=== PATIENT | female | born 1965 | race Caucasian/White ===

== ENCOUNTER 2019-05-05 03:49 | Emergency (ER) | payer OTHER, SELFPAY ==
--- NOTE | ~2019-05-05 | CT_ITS ---
EXAMINATION: CT lumbar spine wo con DATE: 05/05/2019 05:41 INDICATION: Low back pain. TECHNIQUE: Computed tomography (CT) of the lumbar spine was performed without intravenous contrast. A utomated exposure control and iterative reconstruction technique were employed. The dose-length produ ct was 1160.80 mGy-cm. COMPARISON: None FINDINGS: There is a 2 mm stone in right kidney. There is a 4.1 cm cyst in left kidney. There is a ga llstone in the gallbladder. There is 3 mm anterolisthesis of L3 on L4. Vertebral body heights are nor mal. There is mildly decreased disc height at L3-L4. The following disc levels are specifically discu ssed: L1-L2: The disc does not extend beyond the endplate margin. There is moderate bilateral facet joint o steoarthritis. There is no neural foraminal stenosis. There is no central canal stenosis. L2-L3: The disc does not extend beyond the endplate margin. There is moderate bilateral facet joint o steoarthritis. There is no neural foraminal stenosis. There is no central canal stenosis. L3-L4: The disc is bulging. There is severe bilateral facet joint osteoarthritis. There is mild bilat eral neural foraminal stenosis. There is mild central canal stenosis. L4-L5: The disc is bulging. There is mild right and moderate left facet joint osteoarthritis. There i s mild bilateral neural foraminal stenosis. There is mild central canal stenosis. L5-S1: The disc does not extend beyond the endplate margin. There is moderate right and severe left f acet joint osteoarthritis. There is no neural foraminal stenosis. There is no central canal stenosis. IMPRESSION: 1. Mild lumbar spondylosis. Reviewed, dictated and finalized at location A. ER APPRAISER IMPRESSION: 1. Mild lumbar spondylosis.
[2019-05-05 03:44] VITALS: BP 187/105; PULSE 86; RESP 20; TEMP 36.7; O2SAT 100
--- NOTE | 2019-05-05 04:02 | ED.BACK ---
HPI - Back Pain/Injury General Chief Complaint: Back Pain/Injury Stated Complaint: BACK PAIN Source: RN notes reviewed History of Present Illness HPI Narrative: Patient presents emergency department from home via EMS for back pain. Patient states that today he was working outside in the garden and went to stand up and had sudden onset of back pain and lower bilateral back. She denies any direct trauma or injury. States since that time the patient's pain is progressively gotten worse she notes spasm in the lower back. Patient states she has a history of injuring her back usually in the spring of every year. Patient denies any fevers or chills abdominal pain numbness or tingling in the extremities bowel or bladder incontinence or any other symptoms. States she tried taking Tylenol at home with no relief Related Data Allergies Allergy/AdvReac Type Severity Reaction Status Date / Time No Known Allergies Allergy Verified 05/05/19 03:50 Review of Systems Review of Systems: Narrative: Gen.: Denies fevers or chills ENT: Denies congestion Respiratory: Denies shortness of breath or cough CV: Denies chest pain or palpitations GI: Denies abdominal pain nausea, emesis or diarrhea denies pain with urination or bladder incontinence Musculoskeletal: See HPI Neuro: Denies numbness, tingling, weakness or focal weakness Skin: Denies rash Except as documented, all other systems reviewed and negative [facility] Past Medical History Medical History (Updated 05/05/19 @ 06:05 by Nadeem Harry DO) Hypertension Family History Family History (Updated 05/03/16 @ 09:58 by DOCTOR UNKNOWN) Mother Patient's mother is Sibling Patient's brother is Patient's sister is in good health Patient's brother is in good health Social History Social History Smoking status: Never smoker Alcohol intake: current Exam Narrative: Exam Narrative: APPEARANCE: No acute distress, nontoxic, resting in bed Eyes: EOMI HEENT: Normocephalic, atraumatic, CV: Regular rate and rhythm without murmur RESPIRATORY: No respiratory distress. Clear to auscultation bilaterally. Abdomen: Soft and nontender, no rebound or guarding MUSCULOSKELETAl: Moves all extremities, no clubbing cyanosis or edema Back: No midline lumbar tenderness to palpation or step-off, tender to palpation over bilateral paravertebral muscles L3-5 , pain increased with forward flexion NEURO: Awake and alert. Following commands, speech normal, no focal deficits, muscle strength 5 out of 5 bilateral lower extremities, bilateral patellar reflex 2+ SKIN:: Warm, dry. Normal Color no rash or lesions Course Course Emergency Course: Patient noted initial minimal pain with Valium and Toradol. Morphine given and patient notes improvement with morphine Discussed with patient results of workup and diagnosis. Discussed need for follow-up with primary care, proper use of medication, and reasons to return to the emergency department. Patient understands and agrees to current treatment plan Vital Signs Vital signs: Vital Signs Temperature 98.0 F 05/05/19 03:44 Pulse Rate 86 05/05/19 03:44 Respiratory Rate 20 05/05/19 03:44 Blood Pressure 187/105 H 05/05/19 03:44 Pulse Oximetry 100 05/05/19 03:44 Temperature 98.0 F 05/05/19 03:44 Pulse Rate 73 05/05/19 05:48 Respiratory Rate 20 05/05/19 05:48 Blood Pressure 158/98 H 05/05/19 05:48 Pulse Oximetry 100 05/05/19 05:48 MDM - Back Pain/Injury MDM Narrative Medical decision making narrative: Patient?s pain is positional and localized to back without signs of cord compression or cauda equina. Normal nuerologic exams. No fever noted and no significant risk factors for osteomyelitis or spinal epidural abscess. No symptoms or signs to suggest pain is referred from abdominal or source. There are no pulsatile masses to exam. Patient ambulates
[2019-05-05] MEDS: KETOROLAC 30 MG/ML VIAL (*BKC) IV PUSH (04:07)
--- NOTE | 2019-05-05 04:08 | PC.NURSE ---
INFORMED PT NEED FOR UA. STATES UNABLE TO URINATE AT THIS TIME. WILL CONTINUE TO MONITOR
[2019-05-05] MEDS: MORPHINE SULFATE 4 MG/ML INJ IV PUSH (05:47)
[2019-05-05 05:48] VITALS: BP 158/98; PULSE 73; RESP 20; O2SAT 100
--- NOTE | 2019-05-05 05:52 | PC.NURSE ---
Called lab to add on Lipid Panel
[2019-05-05 06:37] VITALS: BP 148/89; PULSE 89; RESP 20; O2SAT 97
== END 2019-05-05 06:39 | disposition home or self-care (01) ==
PROVIDERS: Emergency Provider Emergency Medicine; PCP Internal Medicine
DX: M54.5 Low back pain (principal); I10 Essential (primary) hypertension
CPT/HCPCS: 72131; 96374; 96375; 99284; J1885; J2270; J3360

== ENCOUNTER 2019-09-01 12:40 | Outpatient (CLI) | payer OTHER, SELFPAY | END 2019-09-01 12:41 | disposition home or self-care (01) | LOC: ANHAUDIO 12:42 | PROVIDERS: PCP Internal Medicine; Visit Provider Internal Medicine | DX: H90.3 Sensorineural hearing loss, bilateral (principal) | CPT/HCPCS: 92557; 92567 ==

== ENCOUNTER 2020-03-08 09:20 | Outpatient (NON) | payer BC, SELFPAY ==
[2020-03-08 18:50] LABS: SARS-CoV-2 RNA PCR Positive
== END 2020-03-08 09:21 ==
PROVIDERS: PCP Internal Medicine; Visit Provider Internal Medicine
DX: Z20.822 Contact with and (suspected) exposure to COVID-19 (principal)
CPT/HCPCS: C9803; U0003

== ENCOUNTER 2020-03-15 11:10 | Inpatient (IN) | payer BC, SELFPAY ==
[2020-03-15] VITALS (10 sets, daily range): BP systolic 122–148; BP diastolic 77–89; PULSE 83–101; RESP 16–22; TEMP 36.1–36.6; O2SAT 90–96; BMI 35.6
--- NOTE | ~2020-03-15 | XR_ITS ---
EXAMINATION: XR chest 1V portable INDICATION: COVID pneumonia TECHNIQUE: Portable AP chest at 0605 hours COMPARISON: 03/15/2020 FINDINGS: There is mild elevation of the right hemidiaphragm. Patchy bilateral airspace opacities are present throughout all lung zones. The cardiomediastinal silhouette is normal. There is no pleural e ffusion or pneumothorax. IMPRESSION: 1. Patchy bilateral airspace opacities, consistent with pneumonia. Reviewed, dictated and finalized at location A. ER SUPERVISOR
--- NOTE | ~2020-03-15 | XR_ITS ---
EXAMINATION: XR chest 2V DATE: 03/15/2020 13:17 INDICATION: Shortness of breath and cough. COVID-19 positive. TECHNIQUE: Frontal and lateral views of the chest were obtained. COMPARISON: Chest 2 views 01/30/2012 FINDINGS: There are mild airspace opacities in the mid and lower lung zones. No pleural effusion or p neumothorax. The heart size is normal. IMPRESSION: 1. Mild airspace opacities in the mid and lower lung zones, consistent with pneumonia. Reviewed, dictated and finalized at location A. [employer] SOL[employer] ARCHITECT IMPRESSION: 1. Mild airspace opacities in the mid and lower lung zones, consistent with pne umonia.
--- NOTE | ~2020-03-15 | CT_ITS ---
EXAMINATION: CTA chest PE protocol DATE: 03/15/2020 16:04 INDICATION: Chest pain. COVID-19 positive on 03/08/20. TECHNIQUE: Computed tomography angiography (CTA) of the chest was performed with 100 mL Omnipaque-350 intravenous contrast timed to evaluate the pulmonary arteries. Coronal maximum intensity projection 3D-reconstructions were created by the technologist. Automated exposure control and iterative reconst ruction technique were employed. The dose-length product was 629.88 mGy-cm. COMPARISON: None. FINDINGS: There are patchy groundglass and airspace opacities involving all lobes. A calcified right lung nodule and calcified right hilar lymph nodes are consistent with old granulomatous disease. No p leural effusion. The heart size is normal. No pericardial effusion. There is a small sliding hiatal h ernia. There is mild mediastinal and right supraclavicular lymphadenopathy, likely reactive. There is no pulmonary embolus. There are gallstones in the gallbladder, which is normal in size. Partially vi sualized is a 4.6 cm cyst in left kidney. There is mild thoracic spondylosis. IMPRESSION: 1. No pulmonary embolus. 2. Diffuse lung disease, consistent with COVID-19 pneumonia. 3. Mild mediastinal and right supraclavicular lymphadenopathy, likely reactive. Reviewed, dictated and finalized at location A. ESTATE ATTORNEY
--- NOTE | 2020-03-15 11:11 | ECG_ITS ---
Measurements Intervals Bly Rate: 97 P: 53 RI: 160 QRS: -32 QRSD: 75 T: 25 QT: 328 QTc: 417 Interpretive Statements SINUS RHYTHM LEFT AXIS DEVIATION BORDERLINE R WAVE PROGRESSION, ANTERIOR LEADS BASELINE ARTIFACT- I, II, III, AVR, AVL, V1-V2, V6 BORDERLINE ECG Electronically Signed On 03-15-2020 11:24:14 FRONT END MECHANIC by Gavin Camacho D.O.
[2020-03-15 11:33] LABS: Basophils Percent Auto 0.2 % (0.2-1.2); Hemoglobin 14.1 g/dL (12.0-15.0); Immature Granulocyte Absolute 0.03 K/mm3 (0.00-0.031); Immature Granulocyte Percent A 0.5 % (0-0.5); Lymphocytes Absolute Auto 1.47 K/mm3 (0.9-3.2); Lymphocytes Percent Auto 26.7 % (18.3-44.2); Mean Corpuscular HGB Conc 32.8 g/dl (32-36); Mean Corpuscular Hemoglobin 30.5 pg (26-34); Mean Corpuscular Volume 93.1 fl (80-100); Mean Platelet Volume 9.4 fl (7.4-10.4); Monocytes Absolute Auto 0.3 K/mm3 (0.1-0.6); Monocytes Percent Auto 5.3 % (2.6-8.5); Neutrophils Absolute Auto 3.7 K/mm3 (1.3-6.7); Neutrophils Percent Auto 67.3 % (45.5-73.1); Platelet Count Result 229 k/mm3 (150-375); Red Blood Count 4.62 M/mm3 (4.2-5.4); Red Cell Distribution Width 12.5 % (11.5-14.5); White Blood Count 5.5 K/mm3 (4.5-10.0)
[2020-03-15 11:53] LABS: Anion Gap 6 mmol/L (8-16); Blood Urea Nitrogen 16 mg/dL (7-17); Calcium 8.7 mg/dL (8.4-10.2); Carbon Dioxide 28 mmol/L (22-30); Chloride 102 mmol/L (98-107); Estimated CRCL calculation 105 ml/min; Estimated Glomerular Filt Rate > 60; Glucose 105 mg/dL (65-105); Potassium 4.2 mmol/L (3.4-5.0); Sodium 136 mmol/L (137-145)
[2020-03-15 14:15] LABS: Alveolar/Arterial O2 Gradient 50.7 mmHg; Base Excess ABG -2.4 mEq/l (+/-2.0); Carboxyhemoglobin 0.5 % THb (0-2.0); Device ROOM AIR; Fractional Inspired Oxygen 21 %; HCO3 ABG 21.5 mEq/l (22.0-26.0); Methemoglobin ABG 0.1 %THb (0-1.5); Modified Allen's Test Pass; Oxygen Saturation ABG 90.5 % (95.0-100.0); Oxyhemoglobin 90.7 % THb (90.0-100.0); PCO2 ABG 34.6 mmHg (35.0-45.0); PO2 ABG 57.6 mmHg (80.0-100.0); PO2 FiO2 Ratio Arterial Blood 2.74 %; Reduced Hemoglobin 8.7 %THb (0-5.0); Site Drawn RIGHT RADIAL; Total Hemoglobin 14.1 g/dL (12.0-18.0); pH ABG 7.411 (7.350-7.450)
[2020-03-15 15:21] LABS: Lactic Acid Reflex 0.9 mmol/L (0.7-2.1)
[2020-03-15 15:24] LABS: D Dimer 1.05 ug/mL (<0.48)
[2020-03-15 15:34] LABS: Troponin I < 0.012 ng/mL (0.000-0.034)
[2020-03-15] MEDS: DEXAMETHASONE SOD PHOS INJ 4 MG/ML VIAL 6 MG IV PUSH (15:47)
--- NOTE | 2020-03-15 16:46 | ED.GENADULT ---
HPI - General Adult General Chief complaint: Shortness of Breath/Dyspnea <Delfino Romero PA-C - Last Filed: 03/15/20 16:52> Stated complaint: covid positive/sob <Delfino Romero PA-C - Last Filed: 03/15/20 16:52> Time Seen by Provider: 03/15/20 14:01 <Delfino Romero PA-C - Last Filed: 03/15/20 16:52> Source: patient <Delfino Romero PA-C - Last Filed: 03/15/20 16:52> Mode of arrival: ambulatory <QING Cox Last Filed: 03/15/20 16:52> Limitations: no limitations <QING Cox Last Filed: 03/15/20 16:52> History of Present Illness HPI narrative: Patient is a 54-year-old female who presents with dyspnea and hypoxemia with Covid positive and symptoms since Anna patient has been checking her oxygen at home was found to be low presents for evaluation of this patient denies chest pain does note fatigue and weakness patient denies any history of respiratory disease. Patient on arrival to emergency department is ill-appearing. Patient denying any pain has been taking [id number] medications with minimal improvement <Delfino Romero PA-C - Last Filed: 03/15/20 16:52> Related Data Home medications: Home Medications Medication Instructions Recorded Confirmed Eusebia's wort 300 mg tablet 300 mg PO TID 05/08/19 09/13/19 ascorbic acid (vitamin C) 250 mg 250 mg PO DAILY 05/08/19 02/12/20 tablet calcium carbonate 600 mg calcium 600 mg PO DAILY 05/08/19 02/12/20 (1,500 mg) tablet aspirin 81 mg tablet,delayed 81 mg PO DAILY 05/15/19 02/12/20 release cholecalciferol (vitamin D3) 125 5,000 unit PO DAILY 05/15/19 02/12/20 mcg (5,000 unit) capsule lactobacillus combination no.8 3 3,000 mmu cells PO DAILY 05/15/19 02/12/20 billion cell capsule <QING Cox Last Filed: 03/15/20 16:52> Allergies/adverse reactions: Allergies Allergy/AdvReac Type Severity Reaction Status Date / Time No Known Allergies Allergy Verified 02/11/20 13:30 <Delfino Romero PA-C - Last Filed: 03/15/20 16:52> Review of Systems Review of Systems: All systems reviewed & are unremarkable except as noted in HPI and below <Delfino Romero PA-C - Last Filed: 03/15/20 16:52> [facility] Past Medical History Medical History: Medical History (Updated 03/15/20 @ 16:52 by Delfino Romero PA-C) Hypertension <Delfino Romero PA-C - Last Filed: 03/15/20 16:52> Family History Family History: Family History Mother Patient's mother is Sibling Patient's brother is Patient's sister is in good health Patient's brother is in good health <Delfino Romero PA-C - Last Filed: 03/15/20 16:52> Social History Social History: Social History Smoking status: Never smoker Second hand tobacco smoke exposure: No Alcohol intake: current Substance use: never <Delfino Romero PA-C - Last Filed: 03/15/20 16:52> Exam Narrative: Exam Narrative: GENERAL: Ill appearing, obese, and in no acute distress. HEAD: Normocephalic, atraumatic. EYES: PERRLA and EOMI. ENT: Nares clear, no rhinorrhea or epistaxis. Mucous membranes moist. Oropharynx without tonsillar hypertrophy exudate or other lesions. CHEST: Diminished on auscultation. No respiratory distress. Crackles in the lung bases HEART: Regular rate and rhythm. No murmur heard. Normal peripheral pulses. EXTREMITIES: Normal range of motion. No edema. SKIN: Warm, dry, no rash. NEURO: No focal deficits. Alert and oriented x3. Cranial nerves II through XII grossly intact PSYCH: Normal mood and affect. <Delfino Romero PA-C - Last Filed: 03/15/20 16:52> Course Course Emergency Course: Patient found to have hypoxemia Covid pneumonia PE ruled out will be placed in hospital requiring oxygenation to the hospitalist kimberly
[2020-03-15] MEDS: FAMOTIDINE 20 MG/2 ML VIAL IV PUSH ×2 (16:47→23:41)
[2020-03-15] MEDS: SODIUM CHLORIDE 0.9% IV 1,000 ML 999 ML IV CONT (16:48)
--- NOTE | 2020-03-15 20:00 | PM.IMHP ---
H&P: HPI History of Present Illness Date/Time: 03/15/20 20:00 Chief Complaint: Shortness of breath. Narrative: This is a 54-year-old female with hypertension presented to the emergency department earlier today with complaints of shortness of breath. She began feeling poorly on New Year's Anna with dry cough, fever, headache, and generalized malaise. She tested positive for COVID on March 08, 2020 and assumes that she got it at work as several coworkers were positive as well. Her fever has improved although she continues to have a dry cough and more importantly she is developed feelings of shortness of breath over last 3 days. She has been monitoring her pulse ox at home and it was reportedly in the high 80s today on room air, prompting her visit today. She denies chest pain, pleuritic pain, palpitations, lower extremity edema, calf pain, and history of venous thromboembolism. Review of Systems Review of Systems: Narrative: Twelve systems were reviewed with pertinent positives and negatives as per HPI. Reports feeling warm at the time my evaluation but the room is quite hot. No anosmia or dysgeusia. She had some mild diarrhea when she 1st began to feel ill but that has improved. Appetite has been okay. No nausea or vomiting. Except as documented, all other systems were reviewed and are negative. [facility] Past Medical History Medical History (Updated 03/15/20 @ 21:16 by Mary Alice Roberts PA-C) Hypertension Pure hypercholesterolemia Surgical History Surgical History (Updated 03/15/20 @ 21:13 by Mary Alice Roberts PA-C) History of arthroscopic knee surgery History of arthroscopic surgery of elbow Bilateral. History of repair of left rotator cuff History of sinus surgery Family History Family History Mother Patient's mother is Sibling Patient's brother is Patient's sister is in good health Patient's brother is in good health Social History Social History (Updated 03/15/20 @ 21:13 by Mary Alice Roberts PA-C) Social History: The patient resides in [place]. She has 2 grown children. Lifelong nonsmoker. Occasional alcohol consumption in moderation. No illicit substance use. She designates her Wilfredo as her surrogate decision maker and wishes to be a full code. Meds Home Medications and Allergies Home Medications Medication Instructions Recorded Confirmed Type lisinopril 10 mg tablet 10 mg PO DAILY #30 tablet 03/18/19 02/12/20 Rx ibuprofen [IBU] 600 mg PO Q6H PRN #20 tablet 05/05/19 02/12/20 Rx Eusebia's wort 300 mg tablet 300 mg PO TID 05/08/19 09/13/19 History ascorbic acid (vitamin C) 250 mg 250 mg PO DAILY 05/08/19 02/12/20 History tablet calcium carbonate 600 mg calcium 600 mg PO DAILY 05/08/19 02/12/20 History (1,500 mg) tablet aspirin 81 mg tablet,delayed 81 mg PO DAILY 05/15/19 02/12/20 History release cholecalciferol (vitamin D3) 125 5,000 unit PO DAILY 05/15/19 02/12/20 History mcg (5,000 unit) capsule cyclobenzaprine 10 mg tablet 10 mg PO TID PRN #30 tablet 05/15/19 09/13/19 Rx lactobacillus combination no.8 3 3,000 mmu cells PO DAILY 05/15/19 02/12/20 History billion cell capsule sulfamethoxazole 800 1 tablet PO Q12H #14 tablet 03/08/20 Rx mg-trimethoprim 160 mg tablet Allergies Allergy/AdvReac Type Severity Reaction Status Date / Time No Known Allergies Allergy Verified 02/11/20 13:30 Vital Signs Vital Signs - 24 hr 03/15/20 11:14 03/15/20 13:19 03/15/20 14:44 Temperature 96.9 F L Pulse Rate 101 H 84 93 Respiratory Rate 18 17 Blood Pressure 148/89 H 122/83 Pulse Oximetry 95 91 03/15/20 15:48 03/15/20 15:50 03/15/20 17:46 Temperature Pulse Rate 89 98 Respiratory Rate 17 22 H Blood Pressure 134/78 136/84 Pulse Oximetry 91 90 95 03/15/20 18:05 03/15/20 19:26 Temperature Pulse Rate 89 85 Respiratory Rate 16 17 Blood Pressur
[2020-03-15] MEDS: LACTATED RINGERS 1,000 ML 75 ML IV CONT (22:00)
--- NOTE | 2020-03-15 22:34 | PC.NURSE ---
2100 PT RECEIVED FROM ER, ALERT AND ORIENTED X3, INDPENDENT IN ROOM. DENIES PAIN. ORIENTED TO ROOM AND REMOTE
[2020-03-16] VITALS (8 sets, daily range): BP systolic 125–156; BP diastolic 70–85; PULSE 69–96; RESP 16–20; TEMP 36.2–36.9; O2SAT 92–96
[2020-03-16 06:36] LABS: Hemoglobin 13.5 g/dL (12.0-15.0); Mean Corpuscular HGB Conc 33.8 g/dl (32-36); Mean Corpuscular Hemoglobin 31.5 pg (26-34); Mean Corpuscular Volume 93.2 fl (80-100); Mean Platelet Volume 9.4 fl (7.4-10.4); Platelet Count Result 267 k/mm3 (150-375); Red Blood Count 4.29 M/mm3 (4.2-5.4); Red Cell Distribution Width 12.3 % (11.5-14.5); White Blood Count 4.5 K/mm3 (4.5-10.0)
[2020-03-16 06:48] LABS: Alanine Aminotransferase 43 U/L (4-35); Albumin Level 3.8 g/dL (3.5-5.1); Alkaline Phosphatase 68 U/L (38-126); Anion Gap 8 mmol/L (8-16); Aspartate Amino Transferase 57 U/L (14-36); Bilirubin,Total 0.4 mg/dL (0.2-1.3); Blood Urea Nitrogen 10 mg/dL (7-17); Calcium 8.9 mg/dL (8.4-10.2); Carbon Dioxide 26 mmol/L (22-30); Chloride 105 mmol/L (98-107); Estimated CRCL calculation 142 ml/min; Estimated Glomerular Filt Rate > 60; Glucose 127 mg/dL (65-105); Magnesium 1.9 mg/dL (1.6-2.3); Potassium 4.1 mmol/L (3.4-5.0); Sodium 139 mmol/L (137-145)
[2020-03-16 06:51] LABS: D Dimer 1.07 ug/mL (<0.48)
[2020-03-16 07:19] LABS: Lactate Dehydrogenase 856 U/L (313-618)
[2020-03-16 07:39] LABS: CRP 19.1 mg/dL (<1.0)
[2020-03-16] MEDS: ENOXAPARIN 40 MG/0.4 ML SYRINGE SUB-Q (09:35)
[2020-03-16] MEDS: DEXAMETHASONE SOD PHOS INJ 4 MG/ML VIAL 6 MG IV PUSH (09:35)
[2020-03-16] MEDS: ASCORBIC ACID 250 MG TABLET PO (09:36)
[2020-03-16] MEDS: CALCIUM CARBONATE (OSCAL) 500 MG TABLET PO (09:36)
[2020-03-16] MEDS: ASPIRIN 81 MG ENTERIC TABLET PO (09:36)
[2020-03-16] MEDS: FAMOTIDINE 20 MG/2 ML VIAL IV PUSH ×2 (09:36→20:08)
[2020-03-16] MEDS: lisinopriL 10 MG TABLET PO (09:36)
[2020-03-16] MEDS: CHOLECALCIFEROL 1,000 UNITS TABLET 5000 UNITS PO (09:36)
[2020-03-16] MEDS: LACTATED RINGERS 1,000 ML 75 ML IV CONT (11:06)
[2020-03-16 16:18] LABS: Alanine Aminotransferase 41 U/L (4-35)
--- NOTE | 2020-03-16 16:55 | PM.IMPN ---
Progress Note: A&P Assessment and Plan (1) Pneumonia due to 2019 novel coronavirus: Code(s): U07.1 - COVID-19; J12.82 - Pneumonia due to coronavirus disease 2019 Status: Acute Assessment and Plan: dexamethasone and remdesivir Tylenol for fever (2) Acute respiratory failure with hypoxia: Code(s): J96.01 - Acute respiratory failure with hypoxia Status: Acute Assessment and Plan: oxygen prn (3) Hypertension: Code(s): I10 - Essential (primary) hypertension Status: Acute Assessment and Plan: continue home medications Subjective Date/time seen: 03/16/20 16:55 Interval history: 54-year-old female with hypertension presented to the emergency department earlier today with complaints of shortness of breath. here with covid pneumonia, has a cough. does not feel well. Review of Systems Review of Systems: All systems reviewed & are unremarkable except as noted in HPI and below Exam Narrative: Exam Narrative: General: Well-developed female Neck: Supple. Respiratory: Respirations are even and nonlabored. She is speaking in full sentences. GI: Abdomen is soft, nontender, and nondistended with positive bowel sounds. Skin: Warm and dry. Extremities: No cyanosis, clubbing, or edema. Radial and pedal pulses intact. Neurological: Alert. Cranial nerves 2-12 are grossly intact. No gross focal deficits to casual conversation. Psychiatric: Pleasant and cooperative with normal mood and affect. Judgment and insight intact. Objective Data Vital Signs Vital Signs: Vital Signs - 24 hr 03/15/20 17:46 03/15/20 18:05 03/15/20 19:26 Temperature Pulse Rate 98 89 85 Respiratory Rate 22 H 16 17 Blood Pressure 136/84 142/88 H 144/88 H Pulse Oximetry 95 95 95 03/15/20 20:35 03/15/20 21:05 03/16/20 00:00 Temperature 36.6 C 36.8 C Pulse Rate 83 86 96 Respiratory Rate 19 16 18 Blood Pressure 132/77 140/80 156/83 H Pulse Oximetry 95 96 94 03/16/20 04:00 03/16/20 08:00 03/16/20 09:30 Temperature 36.8 C 36.9 C Pulse Rate 91 89 Respiratory Rate 16 18 Blood Pressure 140/85 136/82 Pulse Oximetry 93 95 92 03/16/20 09:43 03/16/20 12:00 03/16/20 16:00 Temperature 36.3 C L 36.6 C Pulse Rate 73 69 Respiratory Rate 16 18 Blood Pressure 125/70 133/76 Pulse Oximetry 92 96 95 Intake/Output Intake/Output: Intake & Output 03/13/20 03/14/20 03/15/20 03/16/20 23:59 23:59 23:59 23:59 Intake Total 1100 1780 Output Total 700 Balance 1100 1080 Meds/Results Medications: Active Medications Generic Name Dose Route Start Last Admin Trade Name Freq PRN Reason Stop Dose Admin Acetaminophen 1,000 mg 03/16/20 00:48 Acetaminophen 500 Mg Tablet PO Q8H PRN Fever Albuterol 2 puff 03/15/20 21:17 Albuterol Sulfate (*Sp) Aerosol 1 Puff INHALATION QIDRT PRN Shortness Of Breath Ascorbic Acid 250 mg 03/16/20 09:00 03/16/20 09:36 Ascorbic Acid 250 Mg Tablet PO 250 mg DAILY KEYUR Administration Aspirin 81 mg 03/16/20 09:00 03/16/20 09:36 Aspirin 81 Mg Enteric Tablet PO 81 mg DAILY KEYUR Administration Calcium Carbonate 500 mg 03/16/20 09:00 03/16/20 09:36 Calcium Carbonate (Oscal) 500 Mg Tablet PO 500 mg QAM KEYUR Administration Cyclobenzaprine HCl 10 mg 03/16/20 00:48 Cyclobenzaprine Hcl 10 Mg Tablet PO TID PRN muscle spasm Dexamethasone Sodium Phosphate 6 mg 03/16/20 09:00 03/16/20 09:35 Dexamethasone Sod Phos Inj 4 Mg/Ml Vial IV PUSH 03/24/20 09:01 6 mg DAILY KEYUR Administration Enoxaparin Sodium 40 mg 03/16/20 09:00 03/16/20 09:35 Enoxaparin 40 Mg/0.4 Ml Syringe SUB-Q 40 mg DAILY KEYUR Administration Famotidine 20 mg 03/15/20 21:00 03/16/20 09:36 Famotidine 20 Mg/2 Ml Vial IV PUSH 20 mg Q12HR KEYUR Administration Acetaminophen 1,000 mg in 100 mls @ 400 mls/hr 03/15/20 16:54 03/16/20 09:51 Ofirmev 1,000 Mg Ivpb IVPB 03/16/20 16:55 I
[2020-03-16] MEDS: REMDESIVIR 200 MG/NS 250 ML 200 MG/250 ML BAG 250 MG IVPB (17:24)
[2020-03-16] MEDS: ACIDOPHILUS/BULGARICUS CHEWABLE TABLET 1 TABLET PO (18:47)
[2020-03-17] VITALS (7 sets, daily range): BP systolic 119–146; BP diastolic 67–85; PULSE 55–76; RESP 16–20; TEMP 36.1–36.7; O2SAT 94–97
[2020-03-17] MEDS: LACTATED RINGERS 1,000 ML 75 ML IV CONT ×2 (02:42→18:10)
[2020-03-17 06:56] LABS: Alanine Aminotransferase 38 U/L (4-35)
[2020-03-17 07:32] LABS: Estimated CRCL calculation 142 ml/min; Estimated Glomerular Filt Rate > 60
[2020-03-17] MEDS: ACIDOPHILUS/BULGARICUS CHEWABLE TABLET 1 TABLET PO (09:19)
[2020-03-17] MEDS: CHOLECALCIFEROL 1,000 UNITS TABLET 5000 UNITS PO (09:20)
[2020-03-17] MEDS: lisinopriL 10 MG TABLET PO (09:20)
[2020-03-17] MEDS: CALCIUM CARBONATE (OSCAL) 500 MG TABLET PO (09:20)
[2020-03-17] MEDS: DEXAMETHASONE SOD PHOS INJ 4 MG/ML VIAL 6 MG IV PUSH (09:20)
[2020-03-17] MEDS: ASPIRIN 81 MG ENTERIC TABLET PO (09:20)
[2020-03-17] MEDS: ASCORBIC ACID 250 MG TABLET PO (09:20)
[2020-03-17] MEDS: REMDESIVIR 100 MG/NS 250 ML 100 MG/250 ML BAG 250 MG IVPB (09:21)
[2020-03-17] MEDS: ENOXAPARIN 40 MG/0.4 ML SYRINGE SUB-Q (09:21)
[2020-03-17] MEDS: FAMOTIDINE 20 MG/2 ML VIAL IV PUSH ×2 (09:21→21:30)
--- NOTE | 2020-03-17 14:13 | PM.IMPN ---
Progress Note: A&P Assessment and Plan (1) Pneumonia due to 2019 novel coronavirus: Code(s): U07.1 - COVID-19; J12.82 - Pneumonia due to coronavirus disease 2019 Status: Acute Assessment and Plan: dexamethasone and remdesivir Tylenol for fever, albuterol MDI (2) Acute respiratory failure with hypoxia: Code(s): J96.01 - Acute respiratory failure with hypoxia Status: Acute Assessment and Plan: oxygen prn, try to wean off oxygen (3) Hypertension: Code(s): I10 - Essential (primary) hypertension Status: Acute Assessment and Plan: continue home medications Subjective Date/time seen: 03/17/20 14:13 Interval history: 54-year-old female with hypertension presented to the emergency department earlier today with complaints of shortness of breath. here with covid pneumonia, has a stuffy nose on oxygen. try to wean off oxygen. Sob and deep cough. Review of Systems Review of Systems: All systems reviewed & are unremarkable except as noted in HPI and below Exam Const: General: cooperative and healthy appearing; No in distress Nutritional Appearance: overweight Orientation/consciousness: oriented to person HENMT: Head: normal to inspection Resp: Effort & Inspection: no respiratory distress Auscultation: no rhonchi and no wheezes Cardio: Rate: regular rate Rhythm: regular rhythm GI: Inspection: normal to inspection GI Palp: No abdominal tenderness, No Guarding due to palpation present (GI) and No Hepatomegaly present Auscultation: normal bowel sounds Neuro: General: oriented to person Objective Data Vital Signs Vital Signs: Vital Signs - 24 hr 03/16/20 16:00 03/16/20 20:00 03/17/20 00:00 Temperature 36.6 C 36.2 C L 36.4 C Pulse Rate 69 74 76 Respiratory Rate 18 20 20 Blood Pressure 133/76 151/76 H 119/67 Pulse Oximetry 95 95 94 03/17/20 04:00 03/17/20 08:00 03/17/20 12:00 Temperature 36.3 C L 36.1 C L 36.1 C L Pulse Rate 72 60 67 Respiratory Rate 20 18 18 Blood Pressure 136/79 141/85 H 143/75 H Pulse Oximetry 96 94 94 Intake/Output Intake/Output: Intake & Output 03/14/20 03/15/20 03/16/20 03/17/20 23:59 23:59 23:59 23:59 Intake Total 1100 2770 2240 Output Total 950 300 Balance 1100 1820 1940 Meds/Results Medications: Active Medications Generic Name Dose Route Start Last Admin Trade Name Freq PRN Reason Stop Dose Admin Acetaminophen 1,000 mg 03/16/20 00:48 Acetaminophen 500 Mg Tablet PO Q8H PRN Fever Albuterol 2 puff 03/15/20 21:17 Albuterol Sulfate (*Sp) Aerosol 1 Puff INHALATION QIDRT PRN Shortness Of Breath Ascorbic Acid 250 mg 03/16/20 09:00 03/17/20 09:20 Ascorbic Acid 250 Mg Tablet PO 250 mg DAILY KEYUR Administration Aspirin 81 mg 03/16/20 09:00 03/17/20 09:20 Aspirin 81 Mg Enteric Tablet PO 81 mg DAILY KEYUR Administration Calcium Carbonate 500 mg 03/16/20 09:00 03/17/20 09:20 Calcium Carbonate (Oscal) 500 Mg Tablet PO 500 mg QAM KEYUR Administration Cyclobenzaprine HCl 10 mg 03/16/20 00:48 Cyclobenzaprine Hcl 10 Mg Tablet PO TID PRN muscle spasm Dexamethasone Sodium Phosphate 6 mg 03/16/20 09:00 03/17/20 09:20 Dexamethasone Sod Phos Inj 4 Mg/Ml Vial IV PUSH 03/24/20 09:01 6 mg DAILY KEYUR Administration Enoxaparin Sodium 40 mg 03/16/20 09:00 03/17/20 09:21 Enoxaparin 40 Mg/0.4 Ml Syringe SUB-Q 40 mg DAILY KEYUR Administration Famotidine 20 mg 03/15/20 21:00 03/17/20 09:21 Famotidine 20 Mg/2 Ml Vial IV PUSH 20 mg Q12HR KEYUR Administration Fluticasone Propionate 2 spray 03/17/20 21:00 Fluticasone Propionate 0.05% Na Spr 16 Gm Btl (*Bkc) NASAL Q12HR KEYUR Lactated Ringer's 1,000 mls @ 75 mls/hr 03/15/20 16:55 03/17/20 02:42 Lr - Lactated Ringers Iv IV CONT 75 mls/hr .[id number] KEYUR Administration Remdesivir 100 mg in 250 mls @ 250 mls/hr 03/17/20 10:00 03/17/20 09:21 IVPB 03/20/20 10
[2020-03-17] MEDS: FLUTICASONE PROPIONATE 0.05% NA SPR 16 GM BTL (*BKC) 2 SPRAY NASAL (21:27)
[2020-03-18] VITALS (9 sets, daily range): BP systolic 142–150; BP diastolic 70–86; PULSE 50–68; RESP 16–20; TEMP 36.2–36.7; O2SAT 92–97
[2020-03-18 06:41] LABS: Alanine Aminotransferase 76 U/L (4-35); Estimated CRCL calculation 121 ml/min; Estimated Glomerular Filt Rate > 60
[2020-03-18] MEDS: LACTATED RINGERS 1,000 ML 75 ML IV CONT ×2 (07:37→08:29)
[2020-03-18] MEDS: CALCIUM CARBONATE (OSCAL) 500 MG TABLET PO (08:30)
[2020-03-18] MEDS: ACIDOPHILUS/BULGARICUS CHEWABLE TABLET 1 TABLET PO (08:30)
[2020-03-18] MEDS: ASPIRIN 81 MG ENTERIC TABLET PO (08:30)
[2020-03-18] MEDS: FLUTICASONE PROPIONATE 0.05% NA SPR 16 GM BTL (*BKC) 2 SPRAY NASAL ×2 (08:30→21:01)
[2020-03-18] MEDS: lisinopriL 10 MG TABLET PO (08:30)
[2020-03-18] MEDS: DEXAMETHASONE SOD PHOS INJ 4 MG/ML VIAL 6 MG IV PUSH (08:30)
[2020-03-18] MEDS: ASCORBIC ACID 250 MG TABLET PO (08:30)
[2020-03-18] MEDS: CHOLECALCIFEROL 1,000 UNITS TABLET 5000 UNITS PO (08:30)
[2020-03-18] MEDS: FAMOTIDINE 20 MG/2 ML VIAL IV PUSH (08:31)
[2020-03-18] MEDS: ENOXAPARIN 40 MG/0.4 ML SYRINGE SUB-Q (08:31)
[2020-03-18] MEDS: REMDESIVIR 100 MG/NS 250 ML 100 MG/250 ML BAG 250 MG IVPB (10:59)
--- NOTE | 2020-03-18 15:46 | PM.IMPN ---
Progress Note: A&P Assessment and Plan (1) Pneumonia due to 2019 novel coronavirus: Code(s): U07.1 - COVID-19; J12.82 - Pneumonia due to coronavirus disease 2019 Status: Acute Assessment and Plan: dexamethasone and remdesivir day 4, Tylenol for fever, albuterol MDI Scheduled prone positioning, coronet, cxr ordered for jd am (2) Acute respiratory failure with hypoxia: Code(s): J96.01 - Acute respiratory failure with hypoxia Status: Acute Assessment and Plan: oxygen prn, try to wean off oxygen (3) Hypertension: Code(s): I10 - Essential (primary) hypertension Status: Acute Assessment and Plan: continue home medications Subjective Date/time seen: 03/18/20 15:46 Interval history: 54-year-old female with hypertension presented to the emergency department earlier today with complaints of shortness of breath. here with covid pneumonia. Pt is on 1 liters. Encourage prone position and coronet. Pt to have CXR jd AM Review of Systems Review of Systems: All systems reviewed & are unremarkable except as noted in HPI and below Exam Const: General: cooperative and healthy appearing; No in distress Nutritional Appearance: overweight Orientation/consciousness: oriented to person HENMT: Head: normal to inspection Resp: Effort & Inspection: no respiratory distress Auscultation: no rhonchi and no wheezes GI: Inspection: normal to inspection Neuro: General: oriented to person Objective Data Vital Signs Vital Signs: Vital Signs - 24 hr 03/17/20 16:00 03/17/20 18:40 03/17/20 20:00 Temperature 36.1 C L 36.7 C Pulse Rate 64 55 L Respiratory Rate 16 20 Blood Pressure 136/78 146/72 H Pulse Oximetry 94 94 96 03/18/20 00:00 03/18/20 04:00 03/18/20 08:00 Temperature 36.2 C L 36.2 C L 36.7 C Pulse Rate 53 L 62 50 L Respiratory Rate 20 20 16 Blood Pressure 145/80 H 142/70 H 144/80 H Pulse Oximetry 93 94 96 03/18/20 12:00 Temperature 36.5 C Pulse Rate 62 Respiratory Rate 16 Blood Pressure 143/86 H Pulse Oximetry 95 Intake/Output Intake/Output: Intake & Output 03/15/20 03/16/20 03/17/20 03/18/20 23:59 23:59 23:59 23:59 Intake Total 1100 2770 4870 3030 Output Total 950 300 400 Balance 1100 1820 4570 2630 Meds/Results Medications: Active Medications Generic Name Dose Route Start Last Admin Trade Name Freq PRN Reason Stop Dose Admin Acetaminophen 1,000 mg 03/16/20 00:48 Acetaminophen 500 Mg Tablet PO Q8H PRN Fever Albuterol 2 puff 03/15/20 21:17 Albuterol Sulfate (*Sp) Aerosol 1 Puff INHALATION QIDRT PRN Shortness Of Breath Ascorbic Acid 250 mg 03/16/20 09:00 03/18/20 08:30 Ascorbic Acid 250 Mg Tablet PO 250 mg DAILY KEYUR Administration Aspirin 81 mg 03/16/20 09:00 03/18/20 08:30 Aspirin 81 Mg Enteric Tablet PO 81 mg DAILY KEYUR Administration Calcium Carbonate 500 mg 03/16/20 09:00 03/18/20 08:30 Calcium Carbonate (Oscal) 500 Mg Tablet PO 500 mg QAM KEYUR Administration Cyclobenzaprine HCl 10 mg 03/16/20 00:48 Cyclobenzaprine Hcl 10 Mg Tablet PO TID PRN muscle spasm Dexamethasone Sodium Phosphate 6 mg 03/16/20 09:00 03/18/20 08:30 Dexamethasone Sod Phos Inj 4 Mg/Ml Vial IV PUSH 03/24/20 09:01 6 mg DAILY KEYUR Administration Enoxaparin Sodium 40 mg 03/16/20 09:00 03/18/20 08:31 Enoxaparin 40 Mg/0.4 Ml Syringe SUB-Q 40 mg DAILY KEYUR Administration Famotidine 20 mg 03/15/20 21:00 03/18/20 08:31 Famotidine 20 Mg/2 Ml Vial IV PUSH 20 mg Q12HR KEYUR Administration Fluticasone Propionate 2 spray 03/17/20 21:00 03/18/20 08:30 Fluticasone Propionate 0.05% Na Spr 16 Gm Btl (*Bkc) NASAL 2 spray Q12HR KEYUR Administration Lactated Ringer's 1,000 mls @ 75 mls/hr 03/15/20 16:55 03/18/20 08:29 Lr - Lactated Ringers Iv IV CONT 75 mls/hr .[id number] KEYUR Administration Remdesivir 100 mg in 250 mls @ 250 mls/hr 03/17/20 1
[2020-03-18] MEDS: ALBUTEROL SULFATE (*SP) AEROSOL 1 PUFF 2 PUFF INHALATION (20:25)
[2020-03-19] VITALS (7 sets, daily range): BP systolic 137–152; BP diastolic 59–92; PULSE 58–81; RESP 16–20; TEMP 36.4–37.2; O2SAT 92–97
[2020-03-19 06:42] LABS: Alanine Aminotransferase 205 U/L (4-35)
[2020-03-19 06:52] LABS: Estimated CRCL calculation 121 ml/min; Estimated Glomerular Filt Rate > 60
[2020-03-19] MEDS: FLUTICASONE PROPIONATE 0.05% NA SPR 16 GM BTL (*BKC) 2 SPRAY NASAL ×2 (08:32→20:56)
[2020-03-19] MEDS: ALBUTEROL SULFATE (*SP) AEROSOL 1 PUFF 2 PUFF INHALATION ×4 (08:32→20:57)
[2020-03-19] MEDS: DEXAMETHASONE SOD PHOS INJ 4 MG/ML VIAL 6 MG IV PUSH (08:33)
[2020-03-19] MEDS: ENOXAPARIN 40 MG/0.4 ML SYRINGE SUB-Q (08:33)
[2020-03-19] MEDS: CHOLECALCIFEROL 1,000 UNITS TABLET 5000 UNITS PO (08:34)
[2020-03-19] MEDS: ACIDOPHILUS/BULGARICUS CHEWABLE TABLET 1 TABLET PO (08:34)
[2020-03-19] MEDS: ASPIRIN 81 MG ENTERIC TABLET PO (08:35)
[2020-03-19] MEDS: ASCORBIC ACID 250 MG TABLET PO (08:35)
[2020-03-19] MEDS: lisinopriL 10 MG TABLET PO (08:35)
[2020-03-19] MEDS: CALCIUM CARBONATE (OSCAL) 500 MG TABLET PO (08:35)
--- NOTE | 2020-03-19 14:19 | PM.IMPN ---
Progress Note: A&P Assessment and Plan (1) Pneumonia due to 2019 novel coronavirus: Code(s): U07.1 - COVID-19; J12.82 - Pneumonia due to coronavirus disease 2019 Status: Acute Assessment and Plan: dexamethasone and remdesivir day 4, Tylenol for fever, albuterol MDI Scheduled prone positioning, coronet, unfortunately pts lfts went up and did nt receive her 4 th dose of remdesivir. Monitor lfts, if pt stays off oxygen Dc home tomorrow on oral steroids. (2) Acute respiratory failure with hypoxia: Code(s): J96.01 - Acute respiratory failure with hypoxia Status: Acute Assessment and Plan: Pt off oxygen now. (3) Hypertension: Code(s): I10 - Essential (primary) hypertension Status: Acute Assessment and Plan: Bp is controlled, continue home medications Subjective Date/time seen: 03/19/20 14:19 Interval history: 54-year-old female with hypertension presented to the emergency department earlier today with complaints of shortness of breath. here with covid pneumonia. Pt is off oxygen. Encourage prone position and coronet. cxr looks much unchanged Review of Systems Review of Systems: All systems reviewed & are unremarkable except as noted in HPI and below Exam Narrative: Exam Narrative: General: Well-developed female Neck: Supple. Respiratory: Respirations are even and nonlabored. She is speaking in full sentences. GI: Abdomen is soft, nontender, and nondistended with positive bowel sounds. Skin: Warm and dry. Extremities: No cyanosis, clubbing, or edema. Radial and pedal pulses intact. Neurological: Alert. Cranial nerves 2-12 are grossly intact. No gross focal deficits to casual conversation. Psychiatric: Pleasant and cooperative with normal mood and affect. Judgment and insight intact. Objective Data Vital Signs Vital Signs: Vital Signs - 24 hr 03/18/20 16:00 03/18/20 17:37 03/18/20 20:00 Temperature 36.6 C 36.7 C Pulse Rate 65 60 Respiratory Rate 16 18 Blood Pressure 145/75 H 150/86 H Pulse Oximetry 96 92 93 03/18/20 20:35 03/19/20 00:00 03/19/20 04:00 Temperature 36.4 C 37.2 C Pulse Rate 68 78 81 Respiratory Rate 18 20 18 Blood Pressure 152/92 H 137/59 L Pulse Oximetry 93 94 93 01/15/21 08:00 03/19/20 08:47 03/19/20 12:00 Temperature 36.7 C 36.5 C Pulse Rate 58 L 72 Respiratory Rate 16 16 Blood Pressure 143/92 H 139/80 Pulse Oximetry 92 97 96 Intake/Output Intake/Output: Intake & Output 03/16/20 03/17/20 03/18/20 03/19/20 23:59 23:59 23:59 23:59 Intake Total 2770 4870 4850 790 Output Total 950 300 400 Balance 1820 4570 4450 790 Meds/Results Medications: Active Medications Generic Name Dose Route Start Last Admin Trade Name Freq PRN Reason Stop Dose Admin Acetaminophen 1,000 mg 03/16/20 00:48 Acetaminophen 500 Mg Tablet PO Q8H PRN Fever Albuterol 2 puff 03/18/20 16:00 03/19/20 11:26 Albuterol Sulfate (*Sp) Aerosol 1 Puff INHALATION 2 puff QIDRT KEYUR Administration Ascorbic Acid 250 mg 03/16/20 09:00 03/19/20 08:35 Ascorbic Acid 250 Mg Tablet PO 250 mg DAILY KEYUR Administration Aspirin 81 mg 03/16/20 09:00 03/19/20 08:35 Aspirin 81 Mg Enteric Tablet PO 81 mg DAILY KEYUR Administration Calcium Carbonate 500 mg 03/16/20 09:00 03/19/20 08:35 Calcium Carbonate (Oscal) 500 Mg Tablet PO 500 mg QAM KEYUR Administration Cyclobenzaprine HCl 10 mg 03/16/20 00:48 Cyclobenzaprine Hcl 10 Mg Tablet PO TID PRN muscle spasm Dexamethasone Sodium Phosphate 6 mg 03/16/20 09:00 03/19/20 08:33 Dexamethasone Sod Phos Inj 4 Mg/Ml Vial IV PUSH 03/24/20 09:01 6 mg DAILY KEYUR Administration Enoxaparin Sodium 40 mg 03/16/20 09:00 03/19/20 08:33 Enoxaparin 40 Mg/0.4 Ml Syringe SUB-Q 40 mg DAILY KEYUR Administration Fluticasone Propionate 2 spray 03/17/20 21:00 03/19/20 08:32 Fluticasone Propionate 0.05% Na Spr 16 Gm Btl (*B
[2020-03-20] VITALS: BP 143/73; PULSE 66; RESP 20; TEMP 36.9; O2SAT 94
[2020-03-20 04:00] VITALS: BP 141/68; PULSE 64; RESP 20; TEMP 37.2; O2SAT 93
[2020-03-20] MEDS: ACETAMINOPHEN 500 MG TABLET 1000 MG PO (06:23)
[2020-03-20 07:08] LABS: Alanine Aminotransferase 150 U/L (4-35); Albumin Level 3.2 g/dL (3.5-5.1); Alkaline Phosphatase 71 U/L (38-126); Anion Gap 4 mmol/L (8-16); Aspartate Amino Transferase 53 U/L (14-36); Bilirubin,Total 0.6 mg/dL (0.2-1.3); Blood Urea Nitrogen 16 mg/dL (7-17); Calcium 8.6 mg/dL (8.4-10.2); Carbon Dioxide 31 mmol/L (22-30); Chloride 101 mmol/L (98-107); Estimated CRCL calculation 121 ml/min; Estimated Glomerular Filt Rate > 60; Glucose 92 mg/dL (65-105); Potassium 3.7 mmol/L (3.4-5.0); Sodium 136 mmol/L (137-145)
[2020-03-20] MEDS: ALBUTEROL SULFATE (*SP) AEROSOL 1 PUFF 2 PUFF INHALATION ×2 (08:58→12:51)
[2020-03-20] MEDS: ACIDOPHILUS/BULGARICUS CHEWABLE TABLET 1 TABLET PO (08:59)
[2020-03-20] MEDS: CALCIUM CARBONATE (OSCAL) 500 MG TABLET PO (08:59)
[2020-03-20] MEDS: ASPIRIN 81 MG ENTERIC TABLET PO (08:59)
[2020-03-20] MEDS: ASCORBIC ACID 250 MG TABLET PO (08:59)
[2020-03-20] MEDS: CHOLECALCIFEROL 1,000 UNITS TABLET 5000 UNITS PO (08:59)
[2020-03-20 09:00] VITALS: BP 140/87; PULSE 80; RESP 18; TEMP 36.8; O2SAT 94
[2020-03-20] MEDS: ENOXAPARIN 40 MG/0.4 ML SYRINGE SUB-Q (09:00)
[2020-03-20] MEDS: FLUTICASONE PROPIONATE 0.05% NA SPR 16 GM BTL (*BKC) 2 SPRAY NASAL (09:00)
[2020-03-20] MEDS: DEXAMETHASONE SOD PHOS INJ 4 MG/ML VIAL 6 MG IV PUSH (09:00)
[2020-03-20] MEDS: lisinopriL 10 MG TABLET PO (09:01)
[2020-03-20 12:03] VITALS: BP 159/76; PULSE 77; RESP 18; TEMP 36.8; O2SAT 95
--- NOTE | 2020-03-20 14:35 | PM.DS ---
DS: Admitting Diagnosis Admitting Diagnosis Admitting Diagnosis: SOB DS: Discharge Diagnosis Discharge Diagnosis (1) Pneumonia due to 2019 novel coronavirus: Code(s): U07.1 - COVID-19; J12.82 - Pneumonia due to coronavirus disease 2019 Status: Acute Assessment and Plan: Pt treated with dexamethasone and remdesivir, Tylenol for fever, albuterol MDI Scheduled prone positioning, coronet, unfortunately pts lfts went up and didnt receive her 4 th dose of remdesivir. Pt is doing ok eager to go home, off oxygen. Dc with oral steroids and albuterol HFA. (2) Acute respiratory failure with hypoxia: Code(s): J96.01 - Acute respiratory failure with hypoxia Status: Acute Assessment and Plan: Pt off oxygen now. (3) Hypertension: Code(s): I10 - Essential (primary) hypertension Status: Acute Assessment and Plan: Bp slightly high because of her iv steroids DS: Summary Hospital Course Hospital Course: 54-year-old female with hypertension presented to the emergency department earlier today with complaints of shortness of breath. here with covid pneumonia. Pt is off oxygen. Encourage prone position and coronet. cxr looks much unchanged clinically pt is better, ok for discharge. Treated with remdesivir and iv steroids, Remdesivir stopped after 3 days because of high lfts. pt to have rpt lfts and cxr soon and follow with her PCP. Time Spent with Patient Time attestation: Total time spent providing and/or coordinating discharge services:40 minutes on day of discharge Exam Narrative: Exam Narrative: General: Well-developed female Neck: Supple. Respiratory: Respirations are even and nonlabored. She is speaking in full sentences. GI: Abdomen is soft, nontender, and nondistended with positive bowel sounds. Skin: Warm and dry. Extremities: No cyanosis, clubbing, or edema. Radial and pedal pulses intact. Neurological: Alert. Cranial nerves 2-12 are grossly intact. No gross focal deficits to casual conversation. Psychiatric: Pleasant and cooperative with normal mood and affect. Judgment and insight intact. DS: Data Data Completed and Pending Labs on day of discharge: Labs from last 24 hours 03/20/20 06:29 Sodium 136 L Potassium 3.7 Chloride 101 Carbon Dioxide 31 H Anion Gap 4 L BUN 16 Creatinine 0.60 L Estim Creat Clear Calc 121 Estimated GFR > 60 Glucose 92 Calcium 8.6 Total Bilirubin 0.6 AST 53 H ALT 150 H Alkaline Phosphatase 71 Total Protein 6.0 L Albumin 3.2 L Discharge Plan Discharge Attending physician on discharge: Edna Sotelo Consulting providers: Delfino Romero Discharging Clinician: Edna Sotelo Anticipated Discharge Date/Time: 03/20/20 14:32 Patient Disposition: Home, Self-Care Activity: as tolerated Diet: heart healthy Discharge Instructions: QUARANTINE until 03/24/2020, social distancing, face masks, wash hands OFF WORK 03/15 to 03/24 PT NEEDS LFTS AND CXR on 03/24/20 Patient Instructions: Antibiotic Form, COVID-19 (Coronavirus Disease 2019) (DC), COVID-19: Slow the Coronavirus Spread (DC) Stand Alone Forms: General Discharge Information Follow-up/Referrals: Stefano Kelly DO [Primary Care Provider] - (follow up in 10 days time ) Discharge Medications: New dexamethasone 6 mg tablet 6 mg PO DAILY Qty: 5 RF: 0 albuterol sulfate [Proventil HFA] 90 mcg/actuation Hfa Aerosol Inhaler 2 puff inhalation QIDRT Qty: 1 RF: 0 Continued aspirin [Adult Low Dose Aspirin] 81 mg tablet,delayed release (DR/EC) 81 mg PO DAILY RF: 0 Adult Probiotic 3 billion cell capsule 3,000 mmu cells PO DAILY RF: 0 cholecalciferol (vitamin D3) 125 mcg (5,000 unit) capsule 5,000 unit PO DAILY RF: 0 cyclobenzaprine 10 mg tablet 10 mg PO TID PRN (Reason: muscle spasm) Qty: 30 RF: 0 acetaminophen [Tylenol Extra Strength] 500 mg Capsule 1,000 mg PO Q8H P
== END 2020-03-20 15:45 | disposition home or self-care (01) | DRG 177 ==
LOC: ANHED 16:52 → ANH3MEDSUR 20:02
PROVIDERS: Emergency Medicine Emergency Medical Services; Physician Assistant; Admitting Provider Family Medicine; Emergency Provider Emergency Medicine; PCP Internal Medicine; Visit Provider Family Medicine
DX: U07.1 COVID-19 (principal); J12.82 Pneumonia due to coronavirus disease 2019; J96.01 Acute respiratory failure with hypoxia; I10 Essential (primary) hypertension; E66.9 Obesity, unspecified; Z68.35 Body mass index [BMI] 35.0-35.9, adult
CPT/HCPCS: 36415; 36600; 71045; 71046; 71275; 80048; 80053; 82375; 82565; 82728; 82805; 83050; 83605; 83615; 83735; 84460; 84484; 85025; 85027; 85380; 86140; 93005; 94640; 94667; 96374; 96375; 99285; A9270; J0131; J1100; J1650; J7030; J7120; Q9967

== ENCOUNTER 2020-03-24 09:13 | Outpatient (CLI) | payer BC, SELFPAY ==
--- NOTE | ~2020-03-24 | XR_ITS ---
EXAMINATION: XR chest 2V DATE: 03/24/2020 10:34 INDICATION: COVID-19 pneumonia. TECHNIQUE: Frontal and lateral views of the chest were obtained. COMPARISON: Chest single view 03/19/2020, chest CT 03/15/2020 FINDINGS: There are mild patchy airspace opacities in all right lung zones and left mid and lower mal g zones. No pleural effusion or pneumothorax. The heart size is normal. IMPRESSION: 1. Diffuse lung disease with interval improvement, consistent with pneumonia. Reviewed, dictated and finalized at location B. 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
[2020-03-24 09:58] LABS: Alanine Aminotransferase 76 U/L (4-35); Albumin Level 4.1 g/dL (3.5-5.1); Alkaline Phosphatase 72 U/L (38-126); Aspartate Amino Transferase 29 U/L (14-36); Bilirubin,Total 0.8 mg/dL (0.2-1.3)
== END 2020-03-24 09:14 | disposition home or self-care (01) ==
PROVIDERS: Family Provider Internal Medicine; PCP Internal Medicine; Visit Provider Internal Medicine
DX: R79.89 Other specified abnormal findings of blood chemistry (principal); J12.82 Pneumonia due to coronavirus disease 2019; U07.1 COVID-19; J98.4 Other disorders of lung
CPT/HCPCS: 36415; 71046; 80076

== ENCOUNTER 2020-04-12 13:16 | Outpatient (CLI) | payer BC, SELFPAY ==
--- NOTE | ~2020-04-12 | XR_ITS ---
EXAMINATION: XR chest 2V 04/12/2020 13:26 INDICATION: Cough PROCEDURE: 2 view chest COMPARISON: Comparison to multiple prior studies sequentially, with oldest reviewed study dated 01/04. FINDINGS: The lungs are clear. The cardiomediastinal silhouette is within normal limits. There are no pleural effusions. There is no pneumothorax suspected. IMPRESSION: 1: NO ACUTE CARDIOPULMONARY DISEASE. Reviewed, dictated and finalized at location B. 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
== END 2020-04-12 13:17 | disposition home or self-care (01) ==
PROVIDERS: PCP Internal Medicine; Visit Provider Internal Medicine
DX: R05 Cough (principal)
CPT/HCPCS: 71046

== ENCOUNTER → 2020-06-24 07:06 | Outpatient (CLI) | payer BC, SELFPAY ==
--- NOTE | ~2020-06-24 | MM_ITS ---
EXAMINATION: MM screening [facility] BI w monika HISTORY: Screening mammogram TECHNIQUE: Craniocaudal and mediolateral oblique 3-D tomosynthesis images were obtained and synthetic 2-D images were generated. CAD analysis was submitted and interpreted. COMPARISON: 04/24/2016, 11/26/2014, 09/30/2013 BREAST PARENCHYMAL COMPOSITION: The breasts are almost entirely fatty. FINDINGS: There is no evidence of suspicious mass, calcification, or architectural distortion to sugg est malignancy in either breast. There has been no suspicious interval change. IMPRESSION: 1. No mammographic evidence of malignancy. 2. Recommend routine screening mammography in one year. BI-RADS Category 1: Negative Reviewed, dictated and finalized at location A.
== END ==
PROVIDERS: PCP Internal Medicine; Visit Provider Obstetrics & Gynecology
DX: Z12.31 Encounter for screening mammogram for malignant neoplasm of breast (principal)
CPT/HCPCS: 77063; 77067

== ENCOUNTER 2020-10-18 01:57 | Day surgery (SDC) | payer BC, SELFPAY ==
[2020-10-12 13:44] VITALS: BMI 36.6
[2020-10-18 08:20] VITALS: BP 154/107; PULSE 86; RESP 20; TEMP 36.1; O2SAT 100; BMI 36.1
--- NOTE | 2020-10-18 08:32 | PM.HPGS ---
History of Present Illness History of Present Illness Consent: Risks, benefits, and alternatives have been discussed and questions answered. Patient agrees to proceed with procedure. Chief complaint: family hx of colon polyps Narrative: Whit Tran is a 55 year old female here for colon cancer screening. She has a family history of colorectal neoplasm/ polyps. Review of Systems Review of Systems: All systems reviewed & are unremarkable except as noted in HPI and below PMFSH Past Medical History Medical History Hypertension Pure hypercholesterolemia Surgical History Surgical History History of arthroscopic knee surgery History of arthroscopic surgery of elbow Bilateral. History of repair of left rotator cuff History of sinus surgery Family History Family History Mother Patient's mother is Sibling Patient's brother is Patient's sister is in good health Patient's brother is in good health Social History Social History Social History: The patient resides in [place]. She has 2 grown children. Lifelong nonsmoker. Occasional alcohol consumption in moderation. No illicit substance use. She designates her Wilfredo as her surrogate decision maker and wishes to be a full code. Smoking status: Never smoker Second hand tobacco smoke exposure: No Alcohol intake: current Drinks per week: 1 Substance use: never Living arrangements: with family Spiritual care concerns: No Meds Home Medications and Allergies Home Medications Medication Instructions Recorded Confirmed Type ascorbic acid (vitamin C) 250 mg 250 mg PO DAILY 05/08/19 10/12/20 History tablet calcium carbonate 600 mg calcium 600 mg PO DAILY 05/08/19 10/12/20 History (1,500 mg) tablet aspirin 81 mg tablet,delayed 81 mg PO DAILY 05/15/19 10/12/20 History release cholecalciferol (vitamin D3) 125 5,000 unit PO DAILY 05/15/19 10/12/20 History mcg (5,000 unit) capsule lactobacillus combination no.8 3 3,000 mmu cells PO DAILY 05/15/19 10/12/20 History billion cell capsule acetaminophen 1,000 mg PO Q8H PRN 03/15/20 10/12/20 History lisinopril 10 mg tablet 10 mg PO DAILY #30 tablet 07/18/20 10/12/20 Rx sodium,potassium,mag sulfates 17.5 See Rx Instructions .ROUTE 09/30/20 Rx gram-3.13 gram-1.6 gram oral soln .COMPLEX #1 ml Eusebia's wort 300 mg PO TID 10/12/20 10/12/20 History ascorbic acid-vitamin E-biotin 1 tablet PO DAILY 10/12/20 10/12/20 History [Hair, Skin, Nails with Biotin] Allergies Allergy/AdvReac Type Severity Reaction Status Date / Time No Known Allergies Allergy Verified 10/18/20 08:33 Exam Resp: Auscultation: clear to auscultation bilaterally Cardio: Rate: regular rate Rhythm: regular rhythm GI: GI Palp: Yes Soft to palpation and No Tenderness to palpation present (GI) Assessment and Plan Assessment and plan (1) Colon cancer screening: Code(s): Z12.11 - Encounter for screening for malignant neoplasm of colon Status: Acute Assessment and Plan: Colonoscopy with possible biopsy or polypectomy or cautery or injection of substances.
--- NOTE | 2020-10-18 08:45 | WPDANESEPPF ---
Anes - Initial Pre Proc Eval Procedure: Operation Date: 10/18/20 09:00 Proposed Procedures p Screening Colonoscopy - Rashad Rich MD Date/Time: 10/18/20 08:45 Surgeon: Rashad Rich MD Pre Op Diagnosis: family hx of colon polyps Patient Data Age: 55 Gender: F Height: 1.78 m Weight: 114.4 kg Last Vital Signs Temp 36.1 C L 10/18/20 08:20 Pulse 86 10/18/20 08:20 Resp 20 10/18/20 08:20 BP 154/107 H 10/18/20 08:20 Pulse Ox 100 10/18/20 08:20 Allergies Allergy/AdvReac Type Severity Reaction Status Date / Time No Known Allergies Allergy Verified 10/18/20 08:33 Home Medications Medication Instructions Recorded Confirmed Type ascorbic acid (vitamin C) 250 mg 250 mg PO DAILY 05/08/19 10/18/20 History tablet calcium carbonate 600 mg calcium 600 mg PO DAILY 05/08/19 10/18/20 History (1,500 mg) tablet aspirin 81 mg tablet,delayed 81 mg PO DAILY 05/15/19 10/18/20 History release cholecalciferol (vitamin D3) 125 5,000 unit PO DAILY 05/15/19 10/18/20 History mcg (5,000 unit) capsule lactobacillus combination no.8 3 3,000 mmu cells PO DAILY 05/15/19 10/18/20 History billion cell capsule acetaminophen 1,000 mg PO Q8H PRN 03/15/20 10/18/20 History lisinopril 10 mg tablet 10 mg PO DAILY #30 tablet 07/18/20 10/18/20 Rx Roy's wort 300 mg PO TID 10/12/20 10/18/20 History ascorbic acid-vitamin E-biotin 1 tablet PO DAILY 10/12/20 10/18/20 History [Hair, Skin, Nails with Biotin] Patient hx anesthesia problems: none Family hx anesthesia problems: none PMFSH Past Medical History Medical History Hypertension Pure hypercholesterolemia Surgical History Surgical History History of arthroscopic knee surgery History of arthroscopic surgery of elbow Bilateral. History of repair of left rotator cuff History of sinus surgery Family History Family History Mother Patient's mother is Sibling Patient's brother is Patient's sister is in good health Patient's brother is in good health Social History Social History Social History: The patient resides in [place]. She has 2 grown children. Lifelong nonsmoker. Occasional alcohol consumption in moderation. No illicit substance use. She designates her Wilfredo as her surrogate decision maker and wishes to be a full code. Smoking status: Never smoker Second hand tobacco smoke exposure: No Alcohol intake: current Drinks per week: 1 Substance use: never Living arrangements: with family Spiritual care concerns: No Anes - Eval Final PreProcedure Day of Procedure 10/18/20 08:45 Patient weight: obese Heart: regular rate and rhythm Lungs: clear to auscultation Airway: Mallampati scale class II Neurological: alert and oriented Last oral intake: >/= 8 hours ASA classification: II Emergent: no Anesthetic plan: proceed Anesthesia type and monitoring: general GIVS and standard monitoring Informed Consent: The patient's anesthetic plan and its attendant risks and benefits were discussed with the patient/family/POA. Questions were solicited and answers provided to the satisfaction of the patient/family/POA.
--- NOTE | 2020-10-18 08:50 | WPDANESEPPF ---
Anes - Initial Pre Proc Eval Procedure: Operation Date: 10/18/20 09:00 Proposed Procedures p Screening Colonoscopy - Rashad Rich MD Date/Time: 10/18/20 08:50 Surgeon: Rashad Rich MD Pre Op Diagnosis: family hx of colon polyps Patient Data Age: 55 Gender: F Height: 1.78 m Weight: 114.4 kg Last Vital Signs Temp 36.1 C L 10/18/20 08:20 Pulse 86 10/18/20 08:20 Resp 20 10/18/20 08:20 BP 154/107 H 10/18/20 08:20 Pulse Ox 100 10/18/20 08:20 Allergies Allergy/AdvReac Type Severity Reaction Status Date / Time No Known Allergies Allergy Verified 10/18/20 08:33 Home Medications Medication Instructions Recorded Confirmed Type ascorbic acid (vitamin C) 250 mg 250 mg PO DAILY 05/08/19 10/18/20 History tablet calcium carbonate 600 mg calcium 600 mg PO DAILY 05/08/19 10/18/20 History (1,500 mg) tablet aspirin 81 mg tablet,delayed 81 mg PO DAILY 05/15/19 10/18/20 History release cholecalciferol (vitamin D3) 125 5,000 unit PO DAILY 05/15/19 10/18/20 History mcg (5,000 unit) capsule lactobacillus combination no.8 3 3,000 mmu cells PO DAILY 05/15/19 10/18/20 History billion cell capsule acetaminophen 1,000 mg PO Q8H PRN 03/15/20 10/18/20 History lisinopril 10 mg tablet 10 mg PO DAILY #30 tablet 07/18/20 10/18/20 Rx Medon's wort 300 mg PO TID 10/12/20 10/18/20 History ascorbic acid-vitamin E-biotin 1 tablet PO DAILY 10/12/20 10/18/20 History [Hair, Skin, Nails with Biotin] Patient hx anesthesia problems: none Family hx anesthesia problems: none PMFSH Past Medical History Medical History Hypertension Pure hypercholesterolemia Surgical History Surgical History History of arthroscopic knee surgery History of arthroscopic surgery of elbow Bilateral. History of repair of left rotator cuff History of sinus surgery Family History Family History Mother Patient's mother is Sibling Patient's brother is Patient's sister is in good health Patient's brother is in good health Social History Social History Social History: The patient resides in [place]. She has 2 grown children. Lifelong nonsmoker. Occasional alcohol consumption in moderation. No illicit substance use. She designates her Wilfredo as her surrogate decision maker and wishes to be a full code. Smoking status: Never smoker Second hand tobacco smoke exposure: No Alcohol intake: current Drinks per week: 1 Substance use: never Living arrangements: with family Spiritual care concerns: No Anes - Eval Final PreProcedure Day of Procedure 10/18/20 08:50 Patient weight: obese Heart: regular rate and rhythm Airway: Mallampati scale class II Neurological: alert and oriented Last oral intake: >/= 8 hours ASA classification: II Emergent: no Anesthetic plan: proceed Anesthesia type and monitoring: general GIVS and standard monitoring Informed Consent: The patient's anesthetic plan and its attendant risks and benefits were discussed with the patient/family/POA. Questions were solicited and answers provided to the satisfaction of the patient/family/POA.
[2020-10-18] MEDS: LACTATED RINGERS 1,000 ML 150 ML IV CONT (08:51)
[2020-10-18 09:30] VITALS: BP 135/82; PULSE 69; RESP 18; O2SAT 100
[2020-10-18 09:40] VITALS: BP 153/95; PULSE 70; RESP 16; O2SAT 96
[2020-10-18 09:50] VITALS: BP 155/96; PULSE 68; RESP 18; O2SAT 98
== END 2020-10-18 10:00 | disposition home or self-care (01) ==
PROVIDERS: PCP Internal Medicine; Visit Provider Internal Medicine Gastroenterology
PROC: 0DJD8ZZ Inspection of Lower Intestinal Tract, Via Natural or Artificial Opening Endoscopic (ICD-10-PCS; CPT 45378; principal; 2020-10-18 09:00)
DX: Z12.11 Encounter for screening for malignant neoplasm of colon (principal); K57.30 Diverticulosis of large intestine without perforation or abscess without bleeding; K64.8 Other hemorrhoids; Z83.71 Family history of colonic polyps; I10 Essential (primary) hypertension; E78.00 Pure hypercholesterolemia, unspecified
CPT/HCPCS: 45378; J2704; J7120

== ENCOUNTER → 2021-08-15 15:53 | Outpatient (CLI) | payer BC, SELFPAY ==
--- NOTE | ~2021-08-15 | MM_ITS ---
EXAMINATION: MM screening [facility] BI w monika HISTORY: Screening TECHNIQUE: Craniocaudal and mediolateral oblique 3-D tomosynthesis images were obtained and synthetic 2-D images were generated. CAD analysis was submitted and interpreted. COMPARISON: Comparison to multiple prior studies sequentially, with oldest reviewed study dated 09/26. BREAST PARENCHYMAL COMPOSITION: There are scattered areas of fibroglandular density. FINDINGS: There is asymmetry in the central aspect of the left breast on CC view. No corresponding ab normality on MLO view is seen. The right breast is stable without evidence for malignancy. IMPRESSION: 1. Left breast asymmetries centrally on CC view. 2. Additional mammographic views and possible breast ultrasound are recommended. BI-RADS Category 0: Incomplete: Needs additional imaging evaluation. Reviewed, dictated and finalized at location A. IMPRESSION: 1. Left breast asymmetries centrally on CC view. 2. Additional mammographic views and possible breast ultrasound are recommended . BI-RADS Category 0: Incomplete: Needs additional imaging evaluation.
== END ==
PROVIDERS: PCP Internal Medicine; Visit Provider Obstetrics & Gynecology
DX: Z12.31 Encounter for screening mammogram for malignant neoplasm of breast (principal); R92.8 Other abnormal and inconclusive findings on diagnostic imaging of breast
CPT/HCPCS: 77063; 77067

== ENCOUNTER → 2021-09-01 08:10 | Outpatient (CLI) | payer BC, SELFPAY ==
--- NOTE | ~2021-09-01 | MM_ITS ---
EXAMINATION: MM diagnostic moses LT w monika HISTORY: Follow-up left breast asymmetries TECHNIQUE: Additional 3-D tomosynthesis images of the left breast were performed and synthetic 2-D im ages were generated. CAD analysis was submitted and interpreted. COMPARISON: Comparison to multiple prior studies sequentially, with oldest reviewed study dated 09/27. BREAST PARENCHYMAL COMPOSITION: Breast composed of scattered areas of fibroglandular density FINDINGS: Focal asymmetry centrally in the left breast on previous screening mammogram compresses wit h spot views, compatible with superimposed fibroglandular tissue. There are no suspicious masses, rosi cifications or architectural distortion to suggest malignancy. IMPRESSION: 1. No evidence for malignancy in the left breast. 2. Routine yearly screening mammogram and regular clinical breast examination are recommended. BI-RADS Category 1: Negative Reviewed, dictated and finalized at location [facility]. IMPRESSION: 1. No evidence for malignancy in the left breast. 2. Routine yearly screening mammogram and regular clinical breast examination a re recommended. BI-RADS Category 1: Negative
== END ==
PROVIDERS: PCP Internal Medicine; Visit Provider Obstetrics & Gynecology
DX: R92.8 Other abnormal and inconclusive findings on diagnostic imaging of breast (principal)
CPT/HCPCS: 77061; 77065; G0279

== ENCOUNTER 2021-10-23 17:16 | Emergency (ER) | payer BC, SELFPAY ==
--- NOTE | ~2021-10-23 | XR_ITS ---
EXAM: XR lumbar spine 2-3V DATE: 10/23/2021 19:35 HISTORY: low back pain, NO INJURY . COMPARISON: 10/20/2007. FINDINGS: 5 nonrib-bearing lumbar-type vertebral bodies. Pedicles intact. 5 mm anterolisthesis of L3 on L4. Vertebral body heights preserved. Moderate disc space narrowing at L3-4 through L5-S1. Multil evel facet hypertrophy. No fracture or dislocation. IMPRESSION: Grade 1 anterolisthesis of L3 on L4. Multilevel lumbar degenerative disc disease and face t arthropathy. Reviewed, dictated and finalized at location [facility]. IMPRESSION: Grade 1 anterolisthesis of L3 on L4. Multilevel lumbar degenerative disc disease and facet arthropathy.
[2021-10-23 17:28] VITALS: BP 144/92; PULSE 88; RESP 20; TEMP 36.9; O2SAT 100
[2021-10-23] MEDS: MORPHINE SULFATE INJ (*CRX) 10 MG/ML AMP 8 MG IM (19:55)
[2021-10-23] MEDS: ONDANSETRON HCL ODT 4 MG TABLET PO (19:55)
[2021-10-23 20:33] LABS: Appearance Urine Clear (Clear); Bilirubin Urine Negative (Negative); Blood Urine Negative (Negative); Color Urine Yellow (Yellow); Glucose Urine UA Negative (Negative); Ketones Urine Negative (Negative); Leukocyte Esterase Ur 2+ LEU/UL (Negative); Nitrate Urine Negative (Negative); Protein Urine Negative (Negative); Specific Grav Ur >= 1.030 (1.001-1.035); Urobilinogen Urine 0.2 mg/dL (<2.0); pH Urine 5.5 (5.0-9.0)
[2021-10-23 20:39] LABS: Bacteria Urine Trace /hpf; Mucus Urine Rare /lpf; Squamous Epithelial Cell Urine Moderate /hpf (Few); Transitional Epi Cells Urine Rare /hpf (None Seen); WBC Urine 31-50 /hpf
[2021-10-23 20:42] LABS: Add Urine Microscopic? YES
--- NOTE | 2021-10-23 21:01 | ED.BACK ---
HPI - Back Pain/Injury General Chief Complaint: Back Pain/Injury Stated Complaint: Low back pain Time Seen by Provider: 10/23/21 19:04 Source: patient and RN notes reviewed Mode of arrival: ambulatory Limitations: no limitations History of Present Illness HPI Narrative: This is a 56 year old female who presents for evaluation of low back pain. Patient states her pain started at 11 am when she got out of the shower. She states she was getting out of shower and she felt low back tense up. Her pain is worse with movement and bending over. She tried tylenol with alternating hot and cold compresses. She also states she was walking and she developed severe back spasm. She has pain that radiates to bilateral hips. She has had this issue in the past, and she reports it was improved with morphine and follow up with chiropractor. She denies pain radiating to abdomen or down legs. She denies leg weakness, numbness, tingling. She has denies bowel incontinence or urinary retention. She rates her pain 8/10. Related Data Home Medications Medication Instructions Recorded Confirmed ascorbic acid (vitamin C) 250 mg 250 mg PO DAILY 05/08/19 02/21/21 tablet calcium carbonate 600 mg calcium 600 mg PO DAILY 05/08/19 02/21/21 (1,500 mg) tablet (Calcium) aspirin 81 mg tablet,delayed 81 mg PO DAILY 05/15/19 02/21/21 release (Adult Low Dose Aspirin) cholecalciferol (vitamin D3) 125 5,000 unit PO DAILY 05/15/19 02/21/21 mcg (5,000 unit) capsule lactobacillus combination no.8 3 3,000 mmu cells PO DAILY 05/15/19 02/21/21 billion cell capsule (Adult Probiotic) acetaminophen 500 mg capsule 1,000 mg PO Q8H PRN Fever 03/15/20 02/21/21 Eusebia's wort 300 mg tablet 300 mg PO TID 10/12/20 02/21/21 Allergies Allergy/AdvReac Type Severity Reaction Status Date / Time No Known Allergies Allergy Verified 02/21/21 13:54 Review of Systems Review of Systems: All systems reviewed & are unremarkable except as noted in HPI and below Constitutional: Constitutional: Denies chills, Denies fatigue and Denies fever(s) Cardiovascular: Cardiovascular: Denies chest pain Gastrointestinal: Gastrointestinal: Denies abdominal pain, Denies nausea and Denies vomiting Genitourinary: Genitourinary: Denies nocturia and Denies dysuria Musculoskeletal: Musculoskeletal: Reports back pain and Denies arthralgias Neurologic: Denies focal weakness, Denies numbness and Denies weakness PMFSH Past Medical History Medical History Hypertension Pure hypercholesterolemia Surgical History Surgical History History of arthroscopic knee surgery History of arthroscopic surgery of elbow Bilateral. History of repair of left rotator cuff History of sinus surgery Family History Family History Mother Patient's mother is Sibling Patient's brother is Patient's sister is in good health Patient's brother is in good health Social History Social History Social History: The patient resides in [place]. She has 2 grown children. Lifelong nonsmoker. Occasional alcohol consumption in moderation. No illicit substance use. She designates her Wilfredo as her surrogate decision maker and wishes to be a full code. Smoking status: Never smoker Second hand tobacco smoke exposure: No Alcohol intake: current Drinks per week: 1 Substance use: never Spiritual care concerns: No Exam Const: General: alert Nutritional Appearance: well nourished Orientation/consciousness: patient oriented x3 Limitations: no limitations Resp: Effort & Inspection: normal respiratory effort Auscultation: clear to auscultation bilaterally Cardio: Rate: regular rate Rhythm: regular rhythm Heart sounds: n
[2021-10-23 21:48] VITALS: BP 136/80; PULSE 80; RESP 16; TEMP 36.3; O2SAT 100
== END 2021-10-23 21:50 | disposition home or self-care (01) ==
PROVIDERS: Emergency Provider General Practice; PCP Internal Medicine
DX: N39.0 Urinary tract infection, site not specified (principal); M54.50 Low back pain, unspecified; I10 Essential (primary) hypertension; E78.5 Hyperlipidemia, unspecified
CPT/HCPCS: 72100; 81001; 87086; 87088; 96372; 99283; A9270; J2270

== ENCOUNTER 2022-04-15 10:33 | Emergency (ER) | payer BC, SELFPAY ==
[2022-04-15] VITALS (12 sets, daily range): BP systolic 126–152; BP diastolic 80–105; PULSE 63–106; RESP 17–18; TEMP 36.6; O2SAT 97–100
--- NOTE | ~2022-04-15 | CT_ITS ---
EXAMINATION: CT lumbar spine wo con DATE: 04/15/2022 12:26 INDICATION: Low back pain TECHNIQUE: Computed tomography (CT) of the lumbar spine was performed without intravenous contrast. A utomated exposure control and iterative reconstruction technique were employed. Exam dose: 931.02 mG y-cm total exam DLP. COMPARISON: 10/23/2021 lumbar spine 05/05/2019 CT lumbar spine FINDINGS: There is grade 1 anterolisthesis at L3-4 due to degenerative change at the apophyseal joint s. The lumbar vertebrae are otherwise normally aligned. No fracture or bone destruction is evident. Lumbar and lumbosacral interspaces appear relatively well preserved. There is moderate posterior disc bulging at the L3-4, L4-5 and L5-S1 discs The sacroiliac joints are intact.. Incidentally noted is a left renal cyst. IMPRESSION: Moderate posterior disc bulging is suggested at L3-4, L4-5 and L5-S1 Degenerative changes apophyseal joints with associated grade 1 anterolisthesis at L3-4 No fracture or bone destruction is detected Reviewed, dictated and finalized at [facility]. Reviewed, dictated and finalized at location A. [employer] IMPRESSION: Moderate posterior disc bulging is suggested at L3-4, L4-5 and L5- S1 Degenerative changes apophyseal joints with associated grade 1 anterolisthesis at L3-4 No fracture or bone destruction is detected
[2022-04-15] MEDS: diazePAM (*CRX) 5 MG TABLET PO (11:56)
[2022-04-15] MEDS: KETOROLAC 30 MG/ML VIAL (*BKC) IM (11:57)
--- NOTE | 2022-04-15 12:00 | ED.BACK ---
HPI - Back Pain/Injury General Chief Complaint: Back Pain/Injury Stated Complaint: Low back Pain Time Seen by Provider: 04/15/22 11:13 Source: patient Mode of arrival: ambulatory Limitations: no limitations History of Present Illness HPI Narrative: This is a 56-year-old female that presents to the emergency department for low back pain ongoing over the last 2 days. Reports she bent over to lift something up at work. Since she has been having dull/achy pain in the lower back. Worse with certain movements and relieved with rest. Reports intermittent muscle spasms. She has been taking Tylenol and took some Flexeril with little relief. Denies fever, saddle anesthesia or bowel/bladder incontinence. Related Data Home Medications Medication Instructions Recorded Confirmed ascorbic acid (vitamin C) 250 mg 250 mg PO DAILY 05/08/19 02/22/22 tablet calcium carbonate 600 mg calcium 600 mg PO DAILY 05/08/19 02/22/22 (1,500 mg) tablet (Calcium) aspirin 81 mg tablet,delayed 81 mg PO DAILY 05/15/19 02/22/22 release (Adult Low Dose Aspirin) cholecalciferol (vitamin D3) 125 5,000 unit PO DAILY 05/15/19 02/22/22 mcg (5,000 unit) capsule lactobacillus combination no.8 3 3,000 mmu cells PO DAILY 05/15/19 02/22/22 billion cell capsule (Adult Probiotic) acetaminophen 500 mg capsule 1,000 mg PO Q8H PRN Fever 03/15/20 02/22/22 Eusebia's wort 300 mg tablet 300 mg PO TID 10/12/20 02/22/22 Allergies Allergy/AdvReac Type Severity Reaction Status Date / Time No Known Allergies Allergy Verified 04/15/22 10:34 Review of Systems Review of Systems: CONSTITUTIONAL: Denies fever SKIN: Denies rash MUSCULOSKELETAL: Reports back pain, joint pain, and myalgia. NEUROLOGIC: Denies numbness, or weakness. All systems reviewed & are unremarkable except as noted in HPI and below PMFSH Past Medical History Medical History Hypertension Pure hypercholesterolemia Surgical History Surgical History History of arthroscopic knee surgery History of arthroscopic surgery of elbow Bilateral. History of repair of left rotator cuff History of sinus surgery Family History Family History Mother Patient's mother is Sibling Patient's brother is Patient's sister is in good health Patient's brother is in good health Social History Social History (Updated 02/22/22 @ 16:17 by Ivanna Thomas MA) Social History: The patient resides in [place]. She has 2 grown children. Lifelong nonsmoker. Occasional alcohol consumption in moderation. No illicit substance use. She designates her Wilfredo as her surrogate decision maker and wishes to be a full code. Smoking status: Never smoker Second hand tobacco smoke exposure: No Alcohol intake: current Drinks per week: 1 Substance use: never Lack of Transportation: No Lack of Food: Never True Current Housing: I Have Housing Concerned About Future Housing: No Difficulty Paying Gas/Electric Bills: No Difficulty Paying for Meds: No Currently Unemployed: No Education: Master's Degree or Higher Difficulty w/ Childcare or Family Care: No Living arrangements: with family Spiritual care concerns: No Exam Narrative: GENERAL: Well-appearing, well-nourished, and in no acute distress. HEAD: Normocephalic, atraumatic. EYES: EOMI. CHEST: Clear to auscultation. No respiratory distress. No wheezes rales or rhonchi HEART: Regular rate and rhythm. No murmur heard. Normal peripheral pulses. EXTREMITIES: Normal range of motion. No edema. Normal DP pulses. Strength equal in bilateral lower extremities (5/5) SKIN: Warm, dry, no rash. NEURO: No focal deficits. Alert and oriented x3. PSYCH: Normal mood and affect Course Course Emergency Course: Patient and family updated on wor
== END 2022-04-15 15:30 | disposition home or self-care (01) ==
PROVIDERS: Emergency Provider Physician Assistant; PCP Internal Medicine
DX: M54.50 Low back pain, unspecified (principal); I10 Essential (primary) hypertension; E78.00 Pure hypercholesterolemia, unspecified; Z79.82 Long term (current) use of aspirin
CPT/HCPCS: 72131; 96372; 99284; A9270; J1885

== ENCOUNTER → 2022-09-19 13:54 | Outpatient (CLI) | payer BC, SELFPAY ==
--- NOTE | ~2022-09-19 | MM_ITS ---
EXAMINATION: MM screening moses BI w monika HISTORY: Screening TECHNIQUE: Craniocaudal and mediolateral oblique 3-D tomosynthesis images were obtained and synthetic 2-D images were generated. CAD analysis was submitted and interpreted. COMPARISON: Comparison to multiple prior studies sequentially, with oldest reviewed study dated 09/30. BREAST PARENCHYMAL COMPOSITION: Breast composition is almost entirely fatty FINDINGS: There is no evidence of suspicious mass, calcification, or architectural distortion to sugg est malignancy in either breast. There has been no suspicious interval change. IMPRESSION: 1. No mammographic evidence of malignancy. 2. Recommend routine screening mammography in one year. BI-RADS Category 1: Negative Reviewed, dictated and finalized at location A.
== END ==
PROVIDERS: PCP Internal Medicine; Visit Provider Obstetrics & Gynecology
DX: Z12.31 Encounter for screening mammogram for malignant neoplasm of breast (principal)
CPT/HCPCS: 77063; 77067

== ENCOUNTER 2024-04-02 14:11 | Outpatient (RCR) | payer BC, SELFPAY ==
--- NOTE | 2024-04-02 15:24 | PTOPEVDC ---
Assessment and note entered by Tamiko Lu, PT Thank you for referring Whit Tran to [facility].? An evaluation has been completed. No further treatment is needed. Evaluation / Discharge report Assessment Status Evaluation /discharge ICD-10 Condition Codes (PT) Pain in right knee M25.561 Other ICD-10 Condition Codes ( M 17.11 OA R knee PT) Onset about 1 year ago Subjective Information gradual increase in R knee pain; steroid shots no longer maintain her pain; going to have ear surgery, had to stop anti inflammatory med and can tell a difference, more pain in knee activity: to [facility] 4x/wk--swimming, cardio/wt class and at home does yoga and stretching exercises; use cane PRN when pain increases; stairs an issue and increase pain; not able to kneel on knees; retired; Reported Pain Level Pain Score Self Report Additional Pain Score Comments pain range in the past week 1-10/12 increase pain: walking/standing 45 minutes, stairs decrease pain: tylenol, ice, rest, elevate awaken with knee pain from sleeping 2-3 x/night, now that without anti inflammatory med have a home stim unit, but not used it lately-- educated on pad placement over knee and use 10-15 minutes, can use 2-3x/day if needed Assessment PT Clinical Summary Whit has the diagnosis of R knee OA. She is planning to have a TKR, trying to schedule for June Self assessment LE functional scale rating fo 59% limitation in activity level. She is retired and active--going to [facility] for aquatic and land exercise classes for strengthening, stretching and cardio exercises. She is also walking the dog for up to 1 hour, doing yoga and stretching at home. With the evaluation, she has good strength of R hip and knee; AROM of hip is WNL and knee (-10') to 105'; she has a good understanding of strengthening and HEP-- demonstrated correct posture and position with exercises. Education provided: continue with exercises at [facility] and home, use of home electrical stim for pain and sleep position on her side with pillow between knees. She also asked questions about what to expect post op TKR. She asked good questions and voiced understanding of the education. Skilled PT services are not indicated at this time. She is to continue with her exercises. And to call if she does have any additional questions. Plan of Care PT Services Indicated No
== END 2024-04-03 09:38 | disposition home or self-care (01) ==
LOC: ANHPT 14:11
PROVIDERS: PCP Internal Medicine; Visit Provider Orthopaedic Surgery
DX: M17.11 Unilateral primary osteoarthritis, right knee (principal)
CPT/HCPCS: 97110; 97161; 97530

== ENCOUNTER 2024-04-03 15:37 | Outpatient (CLI) | payer BC, SELFPAY ==
--- NOTE | ~2024-04-03 | MM_ITS ---
EXAMINATION: MM screening moses BI w monika HISTORY: Screening TECHNIQUE: Craniocaudal and mediolateral oblique 3-D tomosynthesis images were obtained and synthetic 2-D images were generated. CAD analysis was submitted and interpreted. COMPARISON: Comparison to multiple prior studies sequentially, with oldest reviewed study dated 11/26. BREAST PARENCHYMAL COMPOSITION: Not dense: There are scattered areas of fibroglandular density. FINDINGS: There is no evidence of suspicious mass, calcification, or architectural distortion to sugg est malignancy in either breast. There has been no suspicious interval change. IMPRESSION: 1. No mammographic evidence of malignancy. 2. Recommend routine screening mammography in one year. BI-RADS Category 1: Negative Reviewed, dictated and finalized at location A. [employer]
== END 2024-04-03 15:38 | disposition home or self-care (01) ==
LOC: MICIMG 15:38
PROVIDERS: PCP Internal Medicine; Visit Provider Obstetrics & Gynecology
DX: Z12.31 Encounter for screening mammogram for malignant neoplasm of breast (principal)
CPT/HCPCS: 77063; 77067

== ENCOUNTER 2024-04-04 08:51 | Outpatient (CLI) | payer BC, SELFPAY ==
--- OUTSIDE RECORDS SUMMARY | 2024-04-04 09:07 | XMS_ITS | Data Portability ---
Author Organization [place] [facility] [place] [employer], Main Office Address [address] [place] [address] Care Team Providers Care Brick Tosser Name Role Phone EL WEST Primary Care Provider EL WEST Referring Provider ZAK EVANS Primary Care Provider Assessment Encounter Date Assessment Date Assessment LastModified by Organization Details LastModified Time 2022 2022 HPI: 57-year-old female came in today for evaluation of her right knee pain. She has been having some soreness and points to the posterior lateral aspect of the right knee where she has been feeling this. She thought she may be developing a Cortez cyst in the back of the knee which is contributing to her symptoms. However this morning she was walking the dog with her . They are walking on flat level sidewalks. She did not have any stumble, fall, trip. She developed severe onset of pain in the right knee. Her actually had to go get the car because she was not able put her weight down on it due to the pain. She has not had prior problems with this knee. She took to leave this morning without any improvement of her symptoms. She has been using crutches at this point due to the pain in the knee. She has difficult time straightening the knee without pain. Patient has a history in her left knee of having loose body removed by Dr. Harris in the past Physical exam: 57-year-old female alert. She is 5 ft 8 and 232 lb her BMI is 33. She is in obvious pain when she is putting more weight down on the leg. She has just a minimal effusion in the knee. She has moderate pain with range of motion. With extension she has a difficult time due to pain. She is able extended to about 3?? shy of full extension which is equal to her left knee. She has flexion to 120 again with rather severe pain. There is no tenderness over the medial or lateral joint line to palpation. She has normal stability in the knee. Hip range of motion causes no discomfort. She has ormn-mh-iagluiha tenderness to the lateral border of the patella. But no severe pain with patellofemoral grind. There is no tenderness over the posterior aspect of the knee, medial or lateral. I do not palpate a Cortez cyst in the knee. Tenderness to the medial tibial plateau or lateral tibial plateau or to the femoral condyles. After ChloraPrep was used on skin 20 mg Kenalog and 3 cc of 0.5% ropivacaine was injected into the right knee. I gave the ropivacaine time set up and patient was ambulating with less pain but not complete resolution of her symptoms. Impression: Patient has pain with weight-bearing that came on spontaneously this morning while walking. Her physical exam at this point is very minimal. She does not have a significant effusion. She does have equal range of motion from right to left. It is painful for her to do range of motion as well as weight-bearing. There is no tenderness to the mediolateral joint line which would again argue against meniscal pathology. Back she had some improvement from the injection would correlate to the pain coming from the knee but it is unclear exactly what is causing her the symptoms. I recommended she continue using a walker which she does have at home instead of the crutches as this is going to be more stable. I am going to prescribe her Medrol Dosepak. I am going to order an MRI scan of her knee for additional evaluation. She is going out of town this Sunday to see her daughter in [place]. We will set up the MRI scan for next Sunday or , she already has an appointment to see us next Sunday and we will review the MRI with her at that time. If she has complete resolution of her symptoms from the injection as well as the Medrol Dosepak she can simply call and cancel the MRI scan. We can still see her on Sunday and reassess her at that time. 30 minutes was spent treatment the patient more half of this in [id number]-[id number] conversation [email or web address] Not available 2022 16:24:33 12/08/2022 12/08/2022 Impression: Patient has moderately severe medial compartment osteoarthritis of the right knee. I have discussed options with her. At some point she may no longer be able to get satisfactory relief with non operative strategies at which time knee replacement would be a consideration for her. I have discussed additional non operative strategies. Her 3 miles a day walking strategy with her moderately severe medial compartment osteoarthritis and moderate obesity is probably detrimental to maintaining homeotasis in her knee. I would recommend that she cut back on her walking significantly. I have encouraged her to increase her efforts to reduce her daily caloric intake a little bit more to allow her to continue losing weight. These issues were thoroughly discussed. She has no history of kidney problems liver problems or peptic ulcer disease. She denies history of fatty liver. She may benefit from nonsteroidal anti-inflammatory medication. I recommended trying diclofenac 50 mg twice daily. I discussed side effects with her. She is given instruction sheet discussing this. She may wish to back off on the Tylenol utilization which are both metabolized by the liver. I will see her back in 1 month to assess her progress. At that point she will be 3 months out after cortisone shot in we could consider another cortisone shot if indicated. 30 minutes were spent in total care this patient with more than half the time spent in xgak-po-amyz care. Not available 12/24/2022 14:39:32 01/15/2023 01/15/2023 Patient returns. She was last seen about 5 weeks ago. She has moderately severe medial compartment osteoarthritis of the right knee. At last visit we started her on diclofenac 50 mg twice daily and she feels this has helped her dramatically. She still has some symptoms off and on on certain days but much less problematic for. Her chief complaint remains anteromedial right knee pain. Her last cortisone shot was 3 months ago. She would like another cortisone shot today. Risk of side effects including risk infection were discussed. After ChloraPrep prep, 20 mg of Kenalog and 3 cc of 0.5% ropivacaine were injected the right knee without difficulty. She is considering cutting back on the diclofenac trying once a day and she may experiment this. I have talked about the importance of weight loss and she is going to start working on that harder. She is doing all of her normal activities. We discussed that when her symptoms become severe enough total knee arthroplasty would be an option for her. She still had about 2 mm of medial compartment joint space remaining on last x-rays. I will see her back in 3 months to assess her progress. She will be getting lab work in the meantime. 20 minutes were spent in total care this patient and half the time spent in qdjn-as-sulp care. Not available 01/15/2023 14:17:21 Plan of Treatment Reminders Order Date Submit Date Provider Last Modified By Organization Details Last Modified Time Details Appointments Procedure 15 2024 09:45A M Abel Greenwood MD Not available Not available Not available Post-Op 15 2024 11:00A M MARÍA ELENA Nails Not available Not available Not available Lab None recorded. Referral None recorded. Procedures injection /aspirati on joint/bur sa (PROC) - in office procedure , administe red by provider 2022 023 [email or web address] In-Office Order, Internal Use Only DO Not Attach Compendium DO Not Attach Compendium, Do Not Delete/merge, [id number] 2022 15:13:34 injection /aspirati on joint/bur sa (PROC) - in office procedure , administe red by provider 2022 023 [email or web address] In-Office Order, Internal Use Only DO Not Attach Compendium DO Not Attach Compendium, Do Not Delete/merge, [id number] 01/15/2023 14:13:29 cerumen removal (PROC) 2023 024 [email or web address] In-Office Order, Internal Use Only DO Not Attach Compendium DO Not Attach Compendium, Do Not Delete/merge, [id number] 12/26/2023 12:23:34 eustachia n tube balloon dilation (PROC) 2023 024 [email or web address] In-Office Order, Internal Use Only DO Not Attach Compendium DO Not Attach Compendium, Do Not Delete/merge, [id number] 01/17/2024 09:03:06 Surgeries None recorded. Imaging XR, knee 2022 023 [email or web address] [facility] [place], [address], [place], [address], 2022 16:15:02 MRI, knee, w/o contrast 2022 023 [facility] [place], [address] [place] [address] Dr, [place], [address], 12/04/2022 15:50:29 Medication Orders Kenalog 10 mg/mL suspensio n for injection 2022 023 [email or web address] [facility], [address], [place], [address], 12/26/2023 10:25:06 ropivacai ne (PF) 5 mg/mL (0.5 %) injection solution 2022 023 [email or web address] [facility], [address], [place], [address], 12/26/2023 10:25:17 Medrol (Marques) 4 mg tablets in a dose pack 2022 023 [email or web address] [facility], [address], [place], [address], 12/08/2022 11:06:59 Kenalog 10 mg/mL suspensio n for injection 2022 023 [email or web address] [facility] [address], [address], [place], [address], 12/26/2023 10:25:06 ropivacai ne (PF) 5 mg/mL (0.5 %) injection solution 2022 023 [email or web address] [facility] [address], [address], [place], [address], 12/26/2023 10:25:17 Patient TargetsNo targets recorded. Patient Instructions Encounter Date Encounter Id Patient Instructions Last Modified By Organization Details Last Modified Time 12/26/2023 [id number] Cerumen removed from right auditory canal successfully with a curette device. We will obtain her previous ENT records through [facility] for left hearing loss. She will be scheduled with Dr. Greenwood for a consultation for an ETBD with tube placement to the left ear. Not available 12/26/2023 10:50:23 Reason for Referral None Reported. Results Created Date Observation Date Name Description Value Unit Range Abnormal Flag Note LastModifiedBy Organization Detail LastModifiedTime 10/12/19 XR, knee No observ ation record ed. [email or web address] [facility] [place] [address], [place], [address], 2022 16:21:55 12/05/19 MRI, knee, w/o contr ast [facility] [address] [place] [address] Patien t Name: WHIT CONTRERAS Access ion #: [id number] Sex: F : 1965 5 Dictat ed By: Pam Avila ell Attend ing Physic adali: PATRICIA MENDOZA Orderi Physic adali: PATRICIA MENDOZA Exam Date: 2022 12:45 PM Exam Name: MRI KNEE RT WO Admitt ing Diagno sis(es ): CLINIC AL INFORM ATION: Pain. No known injury . COMPAR MEIR: None. TECHNI CONCETTA INFORM ATION: Multis equenc e multip lanar MRI images of the right knee were obtain ed withou t contra st. [place] GS: Crucia te ligame nts: ACL and PCL are intact and otherw ise unrema rkable . Extens or mechan ism: Kelechi ceps mechan ism and patell ar tendon are intact . Mild edema and small amount of fluid in the prepat ellar and superf icial infrap atella r bursae . Mild edema in the superi or aspect of Hoffa' s fat pad. Collat eral ligame nts: Grade 2 sprain of the MCL with edema and small amount of fluid along its superf icial and deep fibers . Latera l collat eral ligame nt is intact . Menisc i: Radial tear at the juncti on of the chocolate packer ior horn and chocolate packer ior root attach ment of the medial menisc us measur ing up to 4 mm in transv erse dimens ion, involv ing all 3 zones, with extrus ion of the body of the medial menisc us up to 4 mm beyond the medial tibial margin , abutti ng the MCL. Latera l menisc us is intact . Cartil age: Fissur ing/fi brilla tion at the weight bearin g zone of the latera l femora l condyl e. Chondr al thinni ng with areas of near full-t hickne ss chondr al loss in the weight bearin g zone of the medial femora l condyl e and adjace nt medial tibial platea u and mild subcho ndral cystic change and subcho ndral edema. Full-t hickne ss or near full-t hickne ss chondr al loss involv ing the median ridge of the patell a and adjace nt portio ns of the medial and latera l patell ar facets . Mild subcho ndral cystic change at the inferi or pole of the patell a. Bones: No acute fractu re or focal marrow contus ion. Joint fluid: Small to modera te joint effusi on with mild to modera te synovi tis. Small T1 and T2 hypoin tense focus along the chocolate packer omedia l aspect of the joint, possib le small loose body or focal area of synovi tis. Page 1 [facility] [address] [address] Patien t Name: WHIT CONTRERAS Access ion #: [id number] Sex: F : 1965 5 Dictat ed By: Pam Avila [facility] Attend ing Physic adali: KELLY GOMEZ [facility] Physic adali: PATRICIA MENDOZA Exam Date: 2022 12:45 PM Exam Name: MRI KNEE RT WO Admitt ing Diagno sis(es ): Other: Small focus of T2 hypoin tense signal in the anteri or aspect of the interc ondyla r region , possib ly calcif icatio n. IMPRES COCO: 1. Radial tear at the juncti on of the chocolate packer ior horn and chocolate packer ior root attach ment of the medial menisc us with associ ated extrus ion of the body of the medial menisc us. 2. Grade 2 sprain of the MCL. 3. Small to modera te joint effusi on. Possib le loose body or focal area of synovi tis along the chocolate packer omedia l aspect of the joint. 4. Tricom partme ntal chondr omalac ia as detail ed above. 5. Additi onal findin gs as detail ed above. Electr onical ly Signed by: Pam castaneda at 2022 14:49: 16 PM Page 2 [email or web address] [facility] ([facility]) [address] [place], [address], 12/05/2022 10:06:08 Result Notes None recorded. Problems Name Problem SNOMED Code Status Onset Date Resolution Date Notes Provider Name and Address Organization Details Recorded Time Lateral epicondyli tis 812078257 Active Not Available [facility] 3 13:31:03 Pain of right knee joint 5788370410306 00 Active 2021 Not Available [facility] 3 13:31:03 Pain of left knee joint 7961556639203 07 Active 2021 Not Available [facility] 3 13:31:03 Osteoarthr itis of right knee joint 3437430767903 00 Active 2022 LENO Medrano, [employer] 3 13:50:25 Asymmetric al sensorineu ral hearing loss 308087308 Active 2023 MARÍA ELENA Nails [address] [facility], [address], [place], [address] , [place] [employer] 4 10:47:39 Impacted cerumen in right ear 6162565809161 103 Active 2023 MARÍA ELENA Nails [address] [facility], [address], [place], [address] , [place] [employer] 4 10:47:53 Dysfunctio n of left eustachian tube 4877013174779 106 Active 2023 Abel Greenwood MD [address], [facility] [address], [place], [address] , [facility] [employer] 13:00:40 Problem Notes None recorded. Procedures Surgical History Date Name Laterality Status Provider Name and Address Organization Details Recorded Time procedure on shoulder completed Not Available [facility] 05/03/2022 13:30:01 procedure on elbow completed Not Available [facility] 05/03/2022 13:30:01 Knee Surgery completed Not Available [facility] 05/03/2022 13:30:01 Sinus Surgery completed Joanne conde RN [place] [employer] 12/26/2023 10:28:32 Imaging Results Imaging Date Name Status LastModified by Organiz ation Details LastModified Time 2022 XR, knee completed [email or web address] [facility] [place] [address] [facility] [address], [place], [address], 2022 16:21:55 12/04/2022 MRI, knee, w/o contrast completed [email or web address] [facility] (Imaging) [address] [place], [address], 12/05/2022 10:06:08 Procedure Notes None recorded. Medical Equipment None Reported. Allergies No known drug allergies Medications Name Sig Start Date Stop Date Status Note LastModified by Organization Details LastModified Time cyclobenzap rine 10 mg tablet 10/11 completed Not Available Not Available Not Available prednisone 10 mg tablet TAKE 2 TABLETS BY MOUTH TWICE DAILY FOR 5 DAYS THEN 2 ONCE DAILY FOR 3 DAYS THEN 1 ONCE DAILY FOR 3 DAYS 12/25 completed Not Available Not Available Not Available hydrocodone 5 mg-acetamin ophen 325 mg tablet 01/07 completed Not Available Not Available Not Available meloxicam 15 mg tablet Take 1 tablet every day by oral route. 10/11 completed Not Available Not Available Not Available lisinopril 20 mg tablet active Not Available Not Available Not Available prednisone 5 mg tablet TAKE 8 TABLETS BY MOUTH ONCE DAILY TODAY, THEN DECREASE DOSE BY ONE TABLET EACH DAY UNTIL GONE 12/25 completed Not Available Not Available Not Available valacyclovi r 500 mg tablet TAKE 1 TABLET BY MOUTH ONCE DAILY 12/25 completed Not Available Not Available Not Available triamcinolo ne acetonide 0.1 % topical cream 01/07 completed Not Available Not Available Not Available ketorolac 10 mg tablet TAKE 1 TABLET BY MOUTH EVERY 8 HOURS NEEDED FOR PAIN FOR 3 DAYS 12/08 completed Not Available Not Available Not Available Kenalog 10 mg/mL suspension for injection in office procedure , administe red by provider 12/25 completed [facility]: [phone] 0494- 20 Not Available Not Available Not Available meclizine 25 mg tablet 01/07 completed Not Available Not Available Not Available sulfacetami de sodium 10 % eye drops 01/24 completed Not Available Not Available Not Available hydrocodone 7.5 mg-acetamin ophen 325 mg tablet 01/07 completed Not Available Not Available Not Available cephalexin 500 mg capsule TAKE 1 CAPSULE BY MOUTH EVERY 12 HOURS UNTIL ALL TAKEN 10/11 completed Not Available Not Available Not Available lisinopril 10 mg tablet Take 1 tablet every day by oral route. 10/11 completed Not Available Not Available Not Available triamcinolo ne acetonide 55 mcg nasal spray aerosol 01/07 completed Not Available Not Available Not Available diclofenac sodium 75 mg tablet,kalani yed release 01/07 completed Not Available Not Available Not Available diclofenac sodium 50 mg tablet,kalani yed release 2023 active Not Available Not Available Not Avai lable methylpredn isolone 4 mg tablets in a dose pack TAKE BY MOUTH DIRECTED ON INSIDE OF PACKAGE 12/08 completed Not Available Not Available Not Available fluticasone propionate 50 mcg/actuati on nasal spray,suspe nsion 01/07 completed Not Available Not Available Not Available escitalopra m 10 mg tablet 01/07 completed Not Available Not Available Not Available nitrofurant oin monohydrate /macrocryst als 100 mg capsule 01/07 completed Not Available Not Available Not Available Vitamin C active Not Available Not Rocio ilable Not Available calcium active Not Available Not Avail able Not Available Vitamin D active Not Available Not Rocio ilable Not Available Vitamin B12 active Not Available Not A vailable Not Available Loestrin 24 Fe 1 mg-20 mcg (24)/75 mg (4) tablet 01/07 completed Not Available Not Available Not Available lidocaine (PF) 10 mg/mL (1 %) injection solution In office injection administe red by the provider 07/01 completed [facility]: [phone]- [phone]- [phone] Not Available Not Available Not Available estradiol-n orethindron e acet 0.5 mg-0.1 mg tablet 12/08 completed Not Available Not Available Not Available diclofenac 1 % topical gel 01/24 completed Not Available Not Available Not Available azelastine 205.5 mcg (0.15 %) nasal spray 01/07 completed Not Available Not Available Not Available Suprep Bowel Prep Kit 17.5 gram-3.13 gram-1.6 gram oral solution 01/07 completed Not Available Not Available Not Available Lo Loestrin Fe 1 mg-10 mcg (24)/10 mcg (2) tablet 01/07 completed Not Available Not Available Not Available ropivacaine (PF) 5 mg/mL (0.5 %) injection solution in office procedure , administe red by provider 12/25 completed [facility] [phone] -[phone]- 01 Not Available Not Available Not Available Fluzone Quad 2367-4032 60 mcg (15 mcg x 4)/0.5 mL IM suspension 01/07 completed Not Available Not Available Not Available Afluria Quad (PF) 60 mcg (15 mcg x 4)/0.5 mL IM syringe 01/24 completed Not Available Not Available Not Available Afluria Quad 60 mcg (15 mcg x 4)/0.5 mL intramuscul ar susp. 01/24 completed Not Available Not Available Not Available BinaxNOW COVID-19 Ag Self Test kit TEST DIRECTED TODAY 12/08 completed Not Available Not Available Not Available Paxlovid 300 mg (150 mg x 2)-100 mg tablets in a dose pack TAKE 3 TABLETS TOGETHER (TWO 150 MG NIRMATREL VIR TABLETS AND ONE 100 MG RITONAVIR TABLET) BY MOUTH TWICE DAILY FOR 5 DAYS. 12/25 completed Not Available Not Available Not Available Vitals Date Recorded Body height Provider Name an d Address Organization Details Last Updated DateTime 2022 172.72 cm LENO Medrano [place] [facility] [employer] [facility] 2022 14:40:57 Date Recorded Body mass index (BMI) Body weight Provider Name and Address Organization Details Last Updated DateTime 2022 35.3 kg/m2 351100.43 g Honey Hess Steph [place] [employer] [place] [employer] [facility] 2022 14:41:00 Date Recorded Body height Provider Name an d Address Organization Details Last Updated DateTime 12/08/2022 172.72 cm Honey Hess [facility] [employer] [place] [employer] [facility] 12/08/2022 11:06:36 Date Recorded Body height Provider Name an d Address Organization Details Last Updated DateTime 01/15/2023 172.72 cm Honey Hess [facility] [employer] [facility] [employer] [facility] 01/15/2023 13:49:08 Date Recorded Body height Provider Name an d Address Organization Details Last Updated DateTime 12/26/2023 172.72 cm VITA Maya Samreen [employer] [facility] 12/26/2023 10:24:25 Date Recorded Body mass index (BMI) Provider Name and Address Organization Details Last Updated DateTime 12/26/2023 36.1 kg/m2 VITA Maya Samreen [employer] [facility] 12/26/2023 10:25:54 Date Recorded Body weight Provider Name an d Address Organization Details Last Updated DateTime 12/26/2023 078910.11 VITA Donnelly [employer] [facility] 12/26/2023 10:25:55 Date Recorded Body temperature Provider Name a nd Address Organization Details Last Updated DateTime 12/26/2023 97.7 [degF] VITA Maya [employer] [facility] 12/26/2023 10:29:51 Date Recorded Body height Provider Name an d Address Organization Details Last Updated DateTime 01/09/2024 172.72 cm VITA Maya [facility] [employer] [facility] 01/09/2024 12:33:51 Date Recorded Body mass index (BMI) Body weight Provider Name and Address Organization Details Last Updated DateTime 01/09/2024 36.6 kg/m2 857011.76 VITA Donnelly [place] [employer] [facility] 01/09/2024 12:34:33 Date Recorded Body temperature Provider Name a nd Address Organization Details Last Updated DateTime 01/09/2024 98 [degF] Joanne Decker RN [facility] I L [employer] [facility] 01/09/2024 12:37:10 Social History Question Answer Notes LastModified by Organizat ion Details LastModified Time Tobacco Smoking Status Never Smoker Honey Deshawn, MARIA TSteph null, [facility] [employer] [facility] 2022 14:36:08 What Is Your Level Of Alcohol Consumption? Occasional [email or web address] Information not available 2022 Sex: Unknown Functional Status None recorded. Mental Status None recorded. Family History Relationship Description Onset Age of this Age Resolved Age Notes LastModified by Organization Details LastModified Time Father Heart disease [id number] Not available 05/03/2022 13:30:02 Father Hypertensive disorder [id number] Not available 05/03/2022 13:30:02 Father Diabetes mellitus [id number] Not available 05/03/2022 13:30:02 Mother Heart disease [id number] Not available 05/03/2022 13:30:02 Mother Hypertensive disorder [id number] Not available 05/03/2022 13:30:02 Mother Diabetes mellitus [id number] Not available 05/03/2022 13:30:02 Brother Family history of malignant neoplasm [id number] Not available 05/03/2022 13:30:02 Notes:anesthesia problem NO ENT Medical History Condition Response BLINDNESS N KIDNEY STONES N MRSA N CARPAL TUNNEL SYNDROME N LUNG DISEASE/DISORDER N HISTORY OF DRUG ABUSE N RADIATION / CHEMOTHERAPY N COPD N SPORTS INJURY N ANKLE PAIN N BLOOD DISEASES N SCHIZOPHRENIA N SHINGLES N SHOULDER PAIN N DEPRESSION (INCLUDING POST ) N BOWEL PROBLEMS N STROKE/TIA N ULCERS N KNEE PAIN N BENIGN PROSTATIC HYPERPLASIA N OBESITY N GERD/NAUSEA N ANEURYSM N URINARY/BLADDER/KIDNEY PROBLEMS N CORONARY ARTERY DISEASE (CAD) N ADDICTION CONCERNS N USE OF BLOOD THINNERS N SKIN PROBLEMS N EMPHYSEMA N MUSCLE,JOINT OR BONE PROBLEMS N DVT N STOMACH ULCERS N BLOOD CLOTS N USE OF NSAIDS N CONCUSSION OR SPINAL TRAUMA N NEUROPATHY N AIDS/HIV N FRACTURES N HYPERTENSION Y ELBOW PAIN N TOURETTE'S N Metal allergy N ANXIETY DISORDER N BLOOD TRANSFUSION N ANEMIA/BLOOD DISORDER N BIPOLAR DISORDER N BRONCHITIS N OSTEOARTHRITIS N TUBERCULOSIS N FOOT PROBLEM N HEART VALVE DISORDERS N SOFT TISSUE INJURY N ALLERGIES/HAYFEVER N INFECTIOUS DISEASE N HEART ARRHYTHMIA N INSOMNIA N RHEUMATOID ARTHRITIS N HIGH CHOLESTEROL / HYPERLIPIDEMIA N EDEMA N CHRONIC PAIN SYNDROME N CAROTID BLOCKAGE N BACK / NECK PROBLEMS N HAVE YOU BEEN HOSPITALIZED OR SEEN IN [facility] IN THE PAST YEAR ? N BURSITIS N HERNIATED DISC N DIALYSIS N FIBROMYALGIA N OSTEOPOROSIS N ARTHRITIS Y NO SIGNIFICANT PAST MEDICAL HISTORY N PERIPHERAL NEUROPATHY N DIABETES, TYPE N HEARTBURN / REFLUX N HEPATITIS / LIVER DISEASE N GOUT N SLEEP DISORDER N ALZHEIMER'S DISEASE N HERPES N SEIZURES/EPILEPSY N HEADACHES/MIGRAINES N VASCULAR DISEASE N HIP PAIN N Blood Disorder N DIZZINESS N HEAD TRAUMA OR INJURY N HEART DISEASE/HEART PROBLEMS N MULTIPLE SCLEROSIS N CARDIAC ARRHYTHMIA N CANCER: SPECIFY N ANESTHESIA COMPLICATIONS N ATRIAL FIBRILLATION N AUTOIMMUNE DISEASE N Gynecological HistoryNo gynecological history recorded. Obstetrics History GPAL:G 0 P 0 0 0 0 Past Encounters Encounter ID Performer Location Encounter Start Date Encounter Closed Date Diagnosis/Indication Diagnosis SNOMED-CT Code Diagnosis ICD10 Code Diagnosis Note [id number] [facility] [address] [facility] [address] [place] [address] 07/01/2021 00:00:00 07/01/2021 10:35:19 [id number] K[employer]ting [facility] [place] [address] [facility] [address] [place] [address] 2022 14:21:42 2022 16:05:50 Pain of right knee joint [id number] 50362 M25.228 [id number] Eirc Fuentes MD [facility] [address] [facility] [address] [place] [address] 12/08/2022 10:53:21 12/25/2022 11:20:55 Pain of right knee joint [id number] 37176 M25.487 [id number] Eric Fuentes MD [facility] [place] [address] [facility] [address] [place] [address] 01/15/2023 13:47:37 01/15/2023 14:49:32 Osteoarthritis of right knee joint [id number] 20348 M17.11 [id number] MARÍA ELENA Nails [facility] [place] [address] [place] [address] 12/26/2023 10:18:50 12/26/2023 10:51:08 Asymmetrical sensorineural hearing loss [id number] H90.[address] Greenwood for an ETBD with tube placement consultati on. Impacted c erumen in right ear [id number] 976537 H61.21 cerumen removed with curette device [id number] Abel Greenwood MD [facility] [place] [address] [place] [address] 01/09/2024 12:15:34 01/30/2024 09:41:00 Dysfunction of left eustachian tube [id number] 671191 H69.92 Health Concerns Section Related Observation LastModified by Organization Detai ls LastModified Time None Recorded Concern Status LastModified by Organization Details LastModified Time None Recorded Advance Directives Directive None Recorded Payers Encounter Date Sequence Insurance Name Policy Number Policy Saavedra Covered Member ID Saavedra Member ID Guarantor Name 2022 1 [place] [id number] Whit A Klarich [id number] Whit A Klarich 12/08/2022 1 [place] [id number] Whit A Klar[place] [id number] Whit Choi Klarich 01/15/2023 1 [place] [id number] Whit A Klarich [id number] Whit A Klarich 12/26/2023 1 [place] [id number] Whit A Klar[place] [id number] Whit Choi Klar[place] 01/09/2024 1 [place] [id number] Whit A Klarich [id number] Whit Choi [place]lar[place] Notes Date Note Type Note Provider Name and Address Organization Details Recorded Time 12/08/2022 text/html patient returns. She was last seen October 11 approximately 2 months ago for her right knee. X-rays were obtained which included a Stork AP view that showed narrowing of medial compartment joint space to 2 mm. Patient was given a cortisone shot at that time as well as a Medrol Dosepak and her pain improved. Her posterolateral knee pain resolved. She went on a trip to [place] and did a great deal of walking and hiking and now she complains of anteromedial knee pain and the kids night and if she is sitting or standing for long period of time. Walking does not seem to be a problem for her currently. MRI scan of her right knee on December 04 shows high-grade diffuse cartilage loss in the patella as well as in the medial compartment patchy bone marrow edema in the anterior medial femoral condyle and medial tibial plateau consistent with active arthropathy of the medial compartment. There is a radial tear the junction of posterior horn and posterior root the medial meniscus with extrusion of the medial meniscus and small amount of edema in the medial collateral ligament. MRI scan was reviewed with the patient today. Patient has been taking Tylenol. Patient typically walks 3 miles a day to walk her dog. She has been working on losing weight over the last 2 years has lost 45 lb thus far. Her most recent height and weight we have from October 07 ft 8 in in height 232 lb BMI 35.3. Eric Fuentes MD [address] [facility], [facility] [address], [place], [address], [place] [facility] [employer] 12/24/2022 14:39:49 12/26/2023 text/html This patient has a past medical history significant for arthritis and hypertension. She presents to the office with a clogged right ear. She notes some otalgia associated. She states that her symptoms had begun yesterday. She does report that she was recently vacationing in [place] with her family and did go swimming. She also notes that she wears ear plugs to sleep at night. She states that she has a history with ear wax buildup and has had cerumen removal multiple times. She does note use of Debrox eardrops prior to visit. She also reports left hearing loss and tinnitus. She states that she has had her tinnitus for many years but it has worsened over the last 1.5 years. She was being seen by [facility] in [place]. She does note that she was told that her eardrum had retracted. She has had audiograms and tympanograms. There was a discussion of an ETBD with tube placement. She wishes to discuss this option further. We will obtain the records from her previous ENT. MARÍA ELENA Nails [address] [facility], [facility] [address], [place], [address], [employer] [facility] 12/26/2023 10:50:30 01/09/2024 text/html this patient has left Eustachian tube dysfunction. She was placed on antibiotics and steroids without improvement. She did have an audiogram and an examination at [facility] and Eustachian tube dysfunction was identified. Abel Greenwood MD [address] [facility], [facility] [address], [place], [address], [employer] 01/09/2024 13:01:11 OBGyn Episode No OBEpisode recorded.
--- OUTSIDE RECORDS SUMMARY | 2024-04-04 09:07 | XMS_ITS | Clinical Summary ---
Author Organization [place] [address] [employer] Address [address] [place] [address] Care Team Providers Care Band Cutting Machine Operator Name Role Phone Stefano Kelly MD Primary Care Provider [phone]- [phone] Allergies No known active allergies Medications aspirin 81 mg enteric coated tablet Active fluticasone propionate (FLONASE) 50 mcg/actuation nasal spray Administer 2 sprays into each nostril daily Active lisinopriL (PRINIVIL,ZESTR [place]) 20 mg tablet Take 1 tablet (20 mg total) by mouth daily Active diclofenac DR (VOLTAREN) 50 mg EC tablet Take 1 tablet (50 mg total) by mouth 2 (two) times a day 4 Active Bacillus coagulans/inuli n (PROBIOTIC WITH PREBIOTIC ORAL) Take by mouth Active calcium-mag oxide-vitamin D3 185-50-100 mg-mg-unit capsule Take by mouth Active glucosamine-cho ndroitin 500-400 mg tablet Take 1 tablet by mouth 3 (three) times a day Active ascorbic acid (ascorbic acid with leigh ann hips) 500 mg tablet,chewable Acti ve Active Problems Problem Noted Date Diagnosed Date Abnormal auditory perception of left ear 024 Ear fullness, left 09/26/2023 Dysfunction of left eustachian tube 06/21/2023 Conductive hearing loss of l eft ear with unrestricted hearing of right ear 06/21/2023 Impacted cerumen of right ear 05/16/2023 Tinnitus of left ear 04/10/2022 Pain of foot 01/05/2014 Surgical History Surgery Date Site/Laterality Comments SINUS SURGERY KNEE SURGERY SHOULDER SURGERY ELBOW SURGERY Medical History Medical History Date Comments Allergic rhinitis Hypertension Tinnitus Ear problems HL (hearing loss) Right sudden h earing loss Family History Medical History Relation Name Comments Heart disease Father Family history of cardiac disorder - (Added by TW Conv) Hypertension Father Family history of hypertension - (Added by TW Conv) Heart disease Mother Family history of cardiac disorder - (Added by TW Conv) Hypertension Mother Family history of hypertension - (Added by TW Conv) Relation Name Status Comments Father Mother Social History Tobacco Use Types Packs/Day Years Used Date Smoking Tobacco: Never Smokeless Tobacco: Never Comments Unknown Sex and Gender Information Value Date Recorded Sex Assigned at Not on file 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 Gender Identity Not on file Sexual Orientation Not on file Obstetrics History Last Filed Vital Signs Vital Sign Reading Time Taken Comments Blood Pressure - - Pulse - - Temperature - - Respiratory Rate 18 09/26/2023 9:10 AM CDT Oxygen Saturation - - Inhaled Oxygen Concentration - - Weight 104.3 kg (230 lb) 09/26/2023 9:10 AM CDT Height 177.8 cm (5' 10 ) 09/26/2023 9:10 AM CDT Body Mass Index 33 09/26/2023 9:10 AM CDT Plan of Treatment Health Maintenance Due Date Last Done Comments Breast Cancer Screening-Mammogram 1965 Cervical Cancer Screening 1965 Colon Cancer Screening-Colonoscopy 1965 Depression Screening 1965 Hepatitis C Screening 1965 DTaP/Tdap/Td Vaccine (1 - Tdap) 10/10/1974 Hepatitis B Screening 10/10/1981 Regular Well Visit/Exam 18-64 10/10/1981 Zoster Vaccine (2 of 2) 12/20/2019 10/25/2019 Covid-19 Vaccine (4 - 2023- season) 2023 07/15/2021, 01/14/2021, 05/08/2020 Influenza Vaccine (#1) 2023 , 11/20/2019, 12/09/2018, Additional history exists Pneumococcal vaccine <65 Aged Out No longer eligible based on patient's age to complete this topic [place] Care Teams Band Cutting Machine Operator Relationship Specialty Start Date End Date Stefano Kelly MD [address] [facility] [address] [place], [place] [id number] PCP - General 01/25/16
--- OUTSIDE RECORDS SUMMARY | 2024-04-04 09:07 | XMS_ITS | Referral Summary ---
Author Organization [place] [address] [employer] Address [address] [place] [address] Care Team Providers Care Darklight Inspector Name Role Phone Stefano Kelly MD Primary Care Provider +1- [phone] Allergies No known active allergies Medications aspirin [...] day Active ascorbic acid (ascorbic acid with legih ann hips) 500 mg tablet,chewable Acti ve Active Problems Problem Noted Date Diagnosed Date Abnormal auditory perception of left ear 024 Ear fullness, left 09/26/2023 Dysfunction of left eustachian tube 06/21/2023 Conductive hearing loss of l eft ear with unrestricted hearing of right ear 06/21/2023 Impacted cerumen of right ear 05/16/2023 Tinnitus of left ear 04/10/2022 Pain of foot 01/05/2014 Social History Tobacco Use Types Packs/Day Years Used Date Smoking Tobacco: Never Smokeless Tobacco: Never Comments Unknown Sex and Gender Information Value Date Recorded Sex Assigned at Not on file 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
--- NOTE | 2024-04-04 09:10 | ECG_ITS ---
Test Date: 2024-04-04 09:19:20 Measurements Intervals Delta Rate: 70 P: 43 IN: 166 QRS: -32 QRSD: 82 T: 13 QT: 400 QTc: 432 Interpretive Statements SINUS RHYTHM LEFT AXIS DEVIATION [QRS AXIS < -30] No previous ECG available for comparison Electronically Signed On 04-04-2024 14:37:27 PATIENT SUPPORT ASSISTANT by Sameer Blanco M.D.
[2024-04-04 09:24] LABS: Hematocrit 44.8 % (37.0-47.0); Hemoglobin 14.4 g/dL (12.0-15.0)
[2024-04-04 09:44] LABS: Albumin Level 4.3 g/dL (3.5-5.1); Estimated Glomerular Filt Rate > 60; Glucose 95 mg/dL (65-110)
== END 2024-04-04 08:52 | disposition home or self-care (01) ==
PROVIDERS: PCP Internal Medicine; Visit Provider Orthopaedic Surgery
DX: M17.11 Unilateral primary osteoarthritis, right knee (principal); E78.5 Hyperlipidemia, unspecified; E53.8 Deficiency of other specified B group vitamins; I10 Essential (primary) hypertension
CPT/HCPCS: 36415; 82040; 82565; 82947; 85014; 85018; 93005

== ENCOUNTER 2024-06-02 12:13 | Outpatient (CLI) | payer BC, SELFPAY ==
--- OUTSIDE RECORDS SUMMARY | 2024-06-02 13:27 | XMS_ITS | Referral Summary ---
Author Organization [place] [address] [employer] Address [address] [place] [address] Care Team Providers Care Patient Insurance Clerk Name Role Phone Stefano Kelly MD Primary Care Provider +1- [phone] Allergies No known active allergies Medications aspirin [...] on file Legal Sex Female 4:17 AM TWISTER TENDER Gender Identity Not on file Sexual Orientation [...] [place] Care Teams Patient Insurance Clerk Relationship Specialty Start Date End Date Stefano Kelly MD [address] [facility] [address] [place] [address] PCP - General 01/25/16
--- OUTSIDE RECORDS SUMMARY | 2024-06-02 13:27 | XMS_ITS | Clinical Summary ---
Author Organization [place] [address] [employer] Address [address] [place] [address] Care Team Providers Care Student Financial Aid Manager Name Role Phone Stefano Kelly MD Primary Care Provider +1- [phone] Allergies No known active allergies Medications aspirin [...] on file Legal Sex Female 4:[address]IA[address] Gender Identity Not on file Sexual Orientation [...] [place] Care Teams Student Financial Aid Manager Relationship Specialty Start Date End Date Stefano Kelly MD [address] [facility] [address], [place] [id number] PCP - General 01/25/16
[2024-06-02 13:44] LABS: Basophils Absolute Auto 0.1 K/mm3 (0.0-0.1); Basophils Percent Auto 0.6 % (0.2-1.2); Eosinophils Absolute Auto 0.1 K/mm3 (0-0.3); Hematocrit 45.6 % (37.0-47.0); Hemoglobin 14.5 g/dL (12.0-15.0); Immature Granulocyte Absolute 0.03 K/mm3 (0.00-0.031); Immature Granulocyte Percent A 0.4 % (0-0.5); Lymphocytes Absolute Auto 3.27 K/mm3 (0.9-3.2); Lymphocytes Percent Auto 41.4 % (18.3-44.2); Mean Corpuscular HGB Conc 31.8 g/dl (32-36); Mean Corpuscular Volume 97.6 fl (80-100); Mean Platelet Volume 9.8 fl (7.4-10.4); Monocytes Absolute Auto 0.5 K/mm3 (0.1-0.6); Monocytes Percent Auto 6.7 % (2.6-8.5); Neutrophils Absolute Auto 3.9 K/mm3 (1.3-6.7); Neutrophils Percent Auto 49.9 % (45.5-73.1); Platelet Count Result 268 k/mm3 (150-375); Red Blood Count 4.67 M/mm3 (4.2-5.4); Red Cell Distribution Width 12.3 % (11.5-14.5); White Blood Count 7.9 K/mm3 (4.5-10.0)
[2024-06-02 13:56] LABS: Albumin Level 4.7 g/dL (3.5-5.1); Estimated Glomerular Filt Rate > 60; Glucose 89 mg/dL (65-110)
[2024-06-02 14:26] LABS: Hemoglobin A1C 5.6 % (<5.7)
[2024-06-02 14:42] LABS: Urine Cotinine NEGATIVE
[2024-06-02 15:17] LABS: MRSA (PCR) NOT DETECTED (NOT DETECTE)
== END 2024-06-02 12:14 | disposition home or self-care (01) ==
LOC: ANHSURGERY 12:17
PROVIDERS: PCP Internal Medicine; Visit Provider Orthopaedic Surgery
DX: M17.11 Unilateral primary osteoarthritis, right knee (principal); Z01.818 Encounter for other preprocedural examination
CPT/HCPCS: 80307; 82040; 82565; 82947; 83036; 85025; 87641

== ENCOUNTER 2024-06-19 00:36 | Day surgery (SDC) | payer BC, SELFPAY ==
--- NOTE | 2024-06-02 12:16 | PC.NURSE ---
Addendum entered by China Gale RN 06/02/24 13:07: NO MEDICATIONS MORNING OF SURGERY Original Note: Report to the Outpatient Waiting Room, entrance under the green pavilion located off [facility], at time _8:30 AM on date __06/19/24 . Planned Procedure Time: __10:30 AM .? Time changes happen often and if your time is changed the preop area will call you the afternoon before. - You and your visitor will be asked to self-screen and do not enter if you have any COVID symptoms. Please call surgeon if you need to reschedule. - A mask is optional within the hospital at this time. Patients may have clear liquids (water, carbonated beverages, clear teas, apple juice) until 3 hours prior to surgery ( 7:30 AM) with a maximum of 20 ounces. - No food from midnight until time of surgery and no smoking, or chewing tobacco (or any form of nicotine). No chewing gum, candy or mints. Take only the following medications with a SIP of water on the morning of surgery: DO NOT STOP ANY OF YOUR OTHER PRESCRIPTION MEDICATIONS PRIOR TO SURGERY EXCEPT THE FOLLOWING Hold all vitamins and supplements for 3 days per anesthesiologist.LAST DOSE 06/15/24 Medications to discontinue per physician ASPIRIN AND DICLOFENAC HOLD 7 DAYS PRE OP PER DR BAUTISTA Date to take last dose____06/11/24 Please no make-up, nail stateless, hairspray, perfume, deodorant, or body powder the day of surgery.? No jewelry (including any body piercings) or valuables the day of surgery, leave them at home.? Please take a shower or bath the night before, or the morning of, surgery with an antibacterial soap.? Wear comfortable, loose fitting clothing.? Children are encouraged to wear pajamas. - Jewelry must be removed prior to entering the operating room.? Rings and piercings that are not removed may be cut off. - The hospital will not accept responsibility for valuables.? - Please leave all valuables, including medications, at home the day of surgery. If you are going home after surgery, a licensed owner operator tanker truck driver must drive you home.? - NO public transportation without another adult if you receive anesthesia. - We recommend that an adult stay with you for 24 hours following discharge. - We also recommend that you do not drive, make important decision, drink alcoholic beverages, or take any drugs that were not prescribed by your health care provider for at least 24 hours after your discharge time. For Pediatric surgeries, we recommend two adults accompany the child home. Follow any additional instructions given to you from your surgeon. VERBAL AND WRITTEN instructions given to PATIENT_AND SPOUSE DAVID and asked if any additional questions and then verbalized understanding. Patient advised to call surgeon office or pre surgery nurse liaison [phone] if any additional questions.
[2024-06-02 12:20] VITALS: BMI 35.6
[2024-06-02 13:10] VITALS: BP 176/90; PULSE 64; RESP 18; TEMP 37.3; O2SAT 97
[2024-06-19] VITALS (12 sets, daily range): BP systolic 129–173; BP diastolic 64–96; PULSE 56–99; RESP 12–20; TEMP 36.4–36.8; O2SAT 98–100
--- NOTE | ~2024-06-19 | XR_ITS ---
EXAMINATION: [id number] DATE: 06/19/2024 13:00 CDT INDICATION: Postoperative evaluation TECHNIQUE: 2 views right knee FINDINGS: There is a right total knee arthroplasty in expected position. Excellent alignment of the tibial and femoral components. Subcutaneous gas with fluid and air in the joint. No evidence of periprosthetic fracture. IMPRESSION: Expected perioperative appearance post right sided total knee arthroplasty. Reviewed, dictated and finalized at location A.
--- OUTSIDE RECORDS SUMMARY | 2024-06-19 00:38 | XMS_ITS | Continuity of Care Document ---
Author Organization [employer] [facility] Address [address] [place] [address] [place] [address] Phone Care Team Providers Care Billing Administrator Name Role Phone MOHIT Magallanes, OSCAR, Sebas Unavailable Unav ailable Procedures Procedure Date Therapeutic Exercise Neuromuscular Re-Ed Manual Therapy Progress Note Therapeutic Exercise Neuromuscular Re-Ed Hot or Cold Pack Electrical Stimulation Whirlpool Therapeutic Exercise Manual Therapy Hot or Cold Pack Electrical Stimulation Whirlpool Therapeutic Exercise Manual Therapy Hot or Cold Pack Electrical Stimulation Whirlpool Therapeutic Exercise Manual Therapy Hot or Cold Pack Electrical Stimulation Whirlpool Therapeutic Exercise Manual Therapy Hot or Cold Pack Therapeutic Exercise Neuromuscular Re-Ed Manual Therapy Hot or Cold Pack Electrical Stimulation PT Evaluation Moderate Complexity Manual Therapy Electrical Stimulation Ultrasound Advance Directives Directive Yes / No Effective Date File Name No Information Encounters Encounter Description Practice Location Reason(s) For Visit Diagnoses Date Provider Providers Copied on Encounter [facility], [address] [address], [place], [place], [id number], tel:[phone] [place] No Information Sep-0 7-201 7 Jordyn Mullen. [address] [place] [address], [address], [place], [place], [facility], [place]. tel: [phone] [facility] [address] [address], [place], [place], [id number], [place] tel:[phone] [place] No Information 0 5-201 7 Muehl Hitesh. [address] [place] [address], [address], [place], [address], [place]. tel: [phone] [facility] [address] [facility] [address], [place], [place], [id number], tel:[phone] [place] No Information Sam-3 0-201 7 Muehl Hitesh. [address] [place] [address], [address], [place], [place], [facility], [place]. tel: [phone] [place] [address] [place] [address] [address], [place], [place], [id number], [place] tel:[phone] [place] No Information Aug-2 7-201 7 Muehl Loan. [address] [place] [address], [address], [place], [address], [place]. tel: [phone] [place] [address] [address], [place], [place], [id number], [place] tel:[phone] [place] No Information Aug-2 3-201 7 Muehl Hitesh. [address] [place] [address], [address], [place], [place], [facility], [place]. tel: [phone] [facility] [address] [facility] [address], [place], [place], [id number], tel:[phone] [place] No Information Aug-1 9-201 7 Muehl Hitesh. [address] [place] [address], [address], [place], [place], [facility], [place]. tel: [phone] [place], [place] [address], [address] [facility] [address], [place], [place], [id number], tel:[phone] [place] No Information 7 Ju Proctor. [address] [facility], [facility] [address], [place], [facility], . tel: [phone] [facility] [address] [facility] [address], [place], [place], [id number], tel:[phone] [place] Unspecified abnormalities of gait and mobilityOth symptoms and signs involving the musculoskeletal systemStiffness of left foot, not elsewhere classifiedPain in left footOther enthesopathy of left foot 7 Jordyn Mullen. [address] [facility], [address], [place], [facility], . tel: [phone] Family History Family Member Type Diagnosis Age At Onset No Information Payers Payer name Insurance type Covered green party ID Alis stokes(s) [facility] CI [id number] Social History Type Description Quantity Date Captured Comments Sex Female Smoking Status No Information Chief Complaint And Reason For Visit No Information Reason For Referral Reason For Referral No Information History Of Present Illness Encounter Date Complaint History Of Prese nt Illness No Information Functional Status Date Functional Assessmen t No Information Instructions Date Instruction Additional Infor mation No Information Assessments Type Assessment Date No Information Patient Care Teams Name Effective Dates (start - stop) Status Members No Information
--- OUTSIDE RECORDS SUMMARY | 2024-06-19 00:38 | XMS_ITS | Data Portability ---
Author Organization [place] - [facility] [employer], Main Office Address [address] [place] [address] Care Team Providers Care Day Camp Counselor Name Role Phone EL WEST Primary Care Provider EL WEST Referring Provider [phone] ZAK EVANS Primary Care Provider Assessment Encounter Date Assessment Date Assessment LastModified by Organization Details LastModified Time 12/08/2022 12/08/2022 Impression: Patient has moderately severe [...] more than half the time spent in [id number] care. Not available 12/24/2022 14:39:32 01/15/2023 01/15/2023 [...] patient and half the time spent in ojoj-si-yiix care. Not available 01/15/2023 14:17:21 Plan of Treatment Reminders Order Date Submit Date Provider Last Modified By Organization Details Last Modified Time Details Appointments None recorded. Lab None recorded. Referral None recorded. Procedures eustachian tube balloon dilation (PROC) 2023 024 [email or web address] In-Office Order, Internal Use Only DO Not Attach Compendium DO Not Attach Compendium, Do Not Delete/merge, [id number] 16:06:39 cerumen removal (PROC) 2023 024 [email or web address] In-Office Order, Internal Use Only DO Not Attach Compendium DO Not Attach Compendium, Do Not Delete/merge, [id number] 12:23:34 injection/a spiration joint/bursa (PROC) - in office procedure, administere d by provider 2022 023 [email or web address] In-Office Order, Internal Use Only DO Not Attach Compendium DO Not Attach Compendium, Do Not Delete/merge, [id number] 14:13:29 Surgeries None recorded. Imaging None recorded. Medication Orders Kenalog 10 mg/mL suspension for injection 2022 023 [email or web address] [facility] [address], [address], [place], [address], 10:25:06 ropivacaine (PF) 5 mg/mL (0.5 %) injection solution 2022 023 [email or web address] [facility] [address], [address], [place], [address], 10:25:17 Patient TargetsNo targets recorded. Patient Instructions Encounter Date Encounter Id Patient Instructions Last Modified By Organization Details Last Modified Time 12/26/2023 [id number] Cerumen removed from right auditory canal successfully with a curette device. We will obtain her previous ENT records through [facility] for left hearing loss. She will be scheduled with Dr. Greenwood for a consultation for an ETBD with tube placement to the left ear. [email or web address] Not available 12/26/2023 10:50:23 04/15/2024 [id number] Discussed the ability to fly in an airplane safely. Advised that her PE tube we will begin protruding out of the external auditory canal that can take up to 6 months. Relate that belching, coughing, and sneezing may increase the pressure to the ears causing some mild discomfort. Follow-up as needed. [email or web address] Not available 04/15/2024 12:25:50 Reason for Referral None Reported. Results Created Date Observation Date Name Description Value Unit Range Abnormal Flag Note LastModifiedBy Organization Detail LastModifiedTime 12/05/19 MRI, knee, w/o contr ast [facility] [address] [facility], [place] [address] Patijhoan t Name: WHIT CONTRERAS ion #: [id number] Sex: F : 1965 5 Dictat ed By: Michae l McConn ell Attend ing Physic adali: PATRICIA MENDOZA Orderi ng Physic adali: PATRICIA MENDOZA Exam Date: 2022 12:45 PM Exam Name: MRI KNEE RT WO Admitt ing Diagno sis(es ): CLINIC AL INFORM ATION: Pain. No known injury . COMPAR MEIR: None. TECHNI CONCETTA INFORM ATION: Multis equenc e multip lanar MRI images of the right knee were obtain ed withou t contra st. FINDIN GS: Crucia te ligame nts: ACL and [...] tear at the juncti on of the chemical etching processor ior horn and chemical etching processor ior root attach ment of the medial [...] and T2 hypoin tense focus along the chemical etching processor omedia l aspect of the joint, possib le small loose body or focal area of synovi tis. Page 1 [facility] [address] [facility] [place] [address] Patien t Name: WHIT CONTRERAS Access ion #: [id number] Sex: F : 1965 5 Dictat ed By: Pam castaneda Attend ing Physic adali: KELLY GOMEZ [facility] Physic adali: PATRICIA MENDOZA Exam Date: 2022 12:45 PM Exam Name: MRI KNEE RT WO Admitt ing Diagno sis(es ): Other: Small focus of T2 hypoin tense signal in the anteri or aspect of the interc ondyla r region , possib ly calcif icatio n. IMPRES COCO: 1. Radial tear at the juncti on of the chemical etching processor ior horn and chemical etching processor ior root attach ment of the medial menisc us with associ ated extrus ion of the body of the medial menisc us. 2. Grade 2 sprain of the MCL. 3. Small to modera te joint effusi on. Possib le loose body or focal area of synovi tis along the chemical etching processor omedia l aspect of the joint. 4. Tricom partme ntal chondr omalac ia as detail ed above. 5. Additi onal findin gs as detail ed above. Electr onical ly Signed by: Pam castaneda at 2022 14:49: 16 PM Page 2 [email or web address] [facility] (Imaging) [address] [place], [address], 12/05/2022 10:06:08 Result Notes None recorded. Problems Name Problem SNOMED Code Status Onset Date Resolution Date Notes Provider Name and Address Organization Details Recorded Time Lateral epicondyli tis 284334029 Active Not Available [employer] 3 13:31:03 Pain of right knee joint 8791368225589 00 Active 2021 Not Available [facility] 3 13:31:03 Pain of left knee joint 4724291600002 07 Active 2021 Not Available [facility] 3 13:31:03 Osteoarthr itis of right knee joint 8190413304367 00 Active 2022 Honey Deshawn, LENO null, [facility] [employer] [facility] 3 13:50:25 Asymmetric al sensorineu ral hearing loss 861215526 Active 2023 MARÍA ELENA Nails [address], [address], [place], [address] , [facility] [employer] [facility] [employer] [facility] 4 10:47:39 Impacted cerumen in right ear 8025456914799 103 Active 2023 MARÍA ELENA Nails [address], [address], [place], [address] , [employer] [facility] [employer] [facility] 4 10:47:53 Dysfunctio n of left eustachian tube 2902489286873 106 Active 2023 Abel Greenwood MD [address], [address], [place], [address] , [employer] [facility] [employer] [facility] 4 13:00:40 Problem Notes None recorded. Procedures Surgical History Date Name Laterality Status Provider Name and Address Organization Details Recorded Time 04/07/19 25 inflation of Eustachian tube using balloon completed Joanne Decker RN [facility] [employer] [facility] 04/15/2024 08:54:38 04/07/19 25 myringotomy and insertion of tympanic ventilation tube completed Joanne Decker RN [facility] [employer] [facility] 04/15/2024 08:54:50 procedure on shoulder completed Not Available [facility] 05/03/2022 13:30:01 procedure on elbow completed Not Available [facility] 05/03/2022 13:30:01 Knee Surgery completed Not Available [facility] 05/03/2022 13:30:01 Sinus Surgery completed Joanne Decker RN [facility] [employer] [facility] 12/26/2023 10:28:32 Imaging Results Imaging Date Name Status LastModified by Organiz ation Details LastModified Time 12/04/2022 MRI, knee, w/o contrast completed [email or web address] [facility] (Imaging) [address] [place], [address], 12/05/2022 10:06:08 Procedure Notes None recorded. Medical [...] , administe red by provider 12/25 completed [facility]: 0003- [id number]- 20 Not Available Not Available [...] administe red by the provider 07/01 completed [facility]: [id number]- [id number]- 17 Not Available Not Available [...] , administe red by provider 12/25 completed [facility] [id number] [phone] [phone] Not Available Not Available Not Available Fluzone Quad 60 mcg (15 mcg x 4)/0.5 [...] Updated DateTime 12/08/2022 172.72 cm Honey Hess Steph [place] [employer] 12/08/2022 11:06:36 Date Recorded Body height Provider Name an d Address Organization Details Last Updated DateTime 01/15/2023 172.72 cm Honey Hess [place]ph [place] [employer] 01/15/2023 13:49:08 Date Recorded Body height Body mass index (BMI) Body weight Body temperature Provider Name and Address Organization Details Last Updated DateTime 12/26/2023 172.72 cm 36.1 kg/m2 222215.11 g 97.7 [degF] Joanne Decker RN [facility] [employer] 12/26/2023 10:29:51 Date Recorded Body height Body mass index (BMI) Body weight Body temperature Provider Name and Address Organization Details Last Updated DateTime 01/09/2024 172.72 cm 36.6 kg/m2 130199.76 g 98 [degF] Joanne Decker RN [facility] [employer] 01/09/2024 12:37:10 Date Recorded Body height Body mass index (BMI) Body weight Body temperature Provider Name and Address Organization Details Last Updated DateTime 04/15/2024 172.72 cm 37.1 kg/m2 786371.54 g 97.7 [degF] Joanne Decker RN [facility] [employer] [facility] 04/15/2024 11:42:49 Social History Question Answer Notes LastModified by Organizat ion Details LastModified Time Tobacco Smoking Status Never Smoker Honey LENO Hess null, [facility] [employer] [facility] 2022 14:36:08 What Is Your Level Of Alcohol Consumption? Occasional [email or web address] Information not available 2022 Sex: Unknown Functional Status None recorded. Mental Status None recorded. Family History Relationship Description Onset Age of this Age Resolved Age Notes LastModified by Organization Details LastModified Time Father Heart disease [id number] Not available 05/03/2022 13:30:02 Father Hypertensive disorder [id number] [id number] Not available 05/03/2022 13:30:02 Father Diabetes mellitus [id number] [id number] Not available 05/03/2022 13:30:02 Mother Heart disease [id number] Not available 05/03/2022 13:30:02 Mother Hypertensive disorder [id number] [id number] Not available 05/03/2022 13:30:02 Mother Diabetes mellitus [id number] [id number] Not available 05/03/2022 13:30:02 Brother Family history of malignant neoplasm [id number].139 [id number] Not available 05/03/2022 13:30:02 Notes:anesthesia problem NO ENT Medical History Condition Response BLINDNESS N KIDNEY STONES N MRSA N CARPAL TUNNEL SYNDROME N LUNG DISEASE/DISORDER N HISTORY OF DRUG ABUSE N RADIATION / CHEMOTHERAPY N COPD N SPORTS INJURY N ANKLE PAIN N BLOOD DISEASES N SCHIZOPHRENIA N SHINGLES N SHOULDER PAIN N BOWEL PROBLEMS N DEPRESSION (INCLUDING POST ) N STROKE/TIA N ULCERS N KNEE PAIN [...] FOOT PROBLEM N HEART VALVE DISORDERS N ALLERGIES/HAYFEVER N SOFT TISSUE INJURY N INFECTIOUS DISEASE N HEART ARRHYTHMIA N INSOMNIA N HIGH CHOLESTEROL / HYPERLIPIDEMIA N RHEUMATOID ARTHRITIS N EDEMA N CHRONIC PAIN SYNDROME N CAROTID BLOCKAGE N BACK / NECK PROBLEMS N HAVE YOU BEEN HOSPITALIZED OR SEEN IN [facility] ER IN THE PAST YEAR ? N BURSITIS N HERNIATED DISC N DIALYSIS N FIBROMYALGIA N OSTEOPOROSIS N ARTHRITIS Y NO SIGNIFICANT PAST MEDICAL HISTORY N PERIPHERAL NEUROPATHY N DIABETES, TYPE N HEARTBURN / REFLUX N HEPATITIS / LIVER DISEASE N GOUT N ALZHEIMER'S DISEASE N SLEEP DISORDER N HERPES N HEADACHES/MIGRAINES N SEIZURES/EPILEPSY N VASCULAR DISEASE N Blood Disorder N HIP PAIN N DIZZINESS N HEAD TRAUMA OR INJURY N HEART DISEASE/HEART PROBLEMS N MULTIPLE SCLEROSIS N CANCER: SPECIFY N CARDIAC ARRHYTHMIA N ANESTHESIA COMPLICATIONS N ATRIAL FIBRILLATION N AUTOIMMUNE DISEASE N Gynecological HistoryNo gynecological history recorded. Obstetrics History GPAL:G 0 P 0 0 0 0 Past Encounters Encounter ID Performer Location Encounter Start Date Encounter Closed Date Diagnosis/Indication Diagnosis SNOMED-CT Code Diagnosis ICD10 Code Diagnosis Note [id number] [facility] [address] [place] [address] 07/01/2021 00:00:00 07/01/2021 10:35:19 [id number] [employer] [facility] [address] [place] [address] 2022 14:21:42 2022 16:05:50 Pain of right knee joint 6873199406 14280 M25.030 [id number] Eric Fuentes MD [facility] [address] [place] [address] 12/08/2022 10:53:21 12/25/2022 11:20:55 Pain of right knee joint 5814386080 84611 M25.853 [id number] Eric Fuentes MD [facility] [address] [place] [address] 01/15/2023 13:47:37 01/15/2023 14:49:32 Osteoarthritis of right knee joint 9660513598 97552 M17.11 [id number] MARÍA ELENA Nails [facility] [place] [address] [place] [address] 12/26/2023 10:18:50 12/26/2023 10:51:08 Asymmetrical sensorineural hearing loss 157251928 H90.[address] Greenwood for an ETBD with tube placement consultati on. Impacted c erumen in right ear 5854817290 681514 H61.21 cerumen removed with curette device [id number] Abel Greenwood MD [facility] [place] [address] [place] [address] 01/09/2024 12:15:34 01/30/2024 09:41:00 Dysfunction of left eustachian tube 9253158585 921988 H69.92 [id number] MARÍA ELENA Nails [facility] [place] [address] [place] [address] 04/15/2024 11:38:19 04/15/2024 12:26:18 Postoperative visit [id number] Z48.89 04/07/2024 left ETBD with myringotom y tube placement. She is healing well. Advised that her increasing tinnitus to the affected ear we will resolve over time. Health Concerns Section Related Observation LastModified by Organization Detai ls LastModified Time None Recorded Concern Status LastModified by Organization Details LastModified Time None Recorded Advance Directives Directive None Recorded Payers Encounter Date Sequence Insurance Name Policy Number Policy Saavedra Covered Member ID Saavedra Member ID Guarantor Name 12/08/2022 1 [place] [id number] Whit Benitezaric [id number] [facility] 01/15/2023 1 [place] [id number] Whit Choi Klarich [id number] [facility] 12/26/2023 1 [place] [id number] Whit Choi Klarich [id number] [facility]ramirez [facility] 01/09/2024 1 [place] [id number] Whit Benitezaric [id number] Whit Tran 04/15/2024 1 [place] [id number] Whit Tran [id number] Whit Tran Notes Date Note Type Note Provider Name [...] resolved. She went on a trip to [place] and did a great deal of walking [...] 232 lb BMI 35.3. Eric Fuentes MD [address] [place] [address], [facility] [address], [place], [address], [facility] [place] [facility] [employer] 12/24/2022 14:39:49 12/26/2023 text/html This patient has a past medical history significant for arthritis and hypertension. She presents to the office with a clogged right ear. She notes some otalgia associated. She states that her symptoms had begun yesterday. She does report that she was recently vacationing in [place] with her family and did go swimming. [...] 1.5 years. She was being seen by [facility]NT in [place]. She does note that she was told that her eardrum had retracted. She has had audiograms and tympanograms. There was a discussion of an ETBD with tube placement. She wishes to discuss this option further. We will obtain the records from her previous ENT. MARÍA ELENA Nails [address], [place], [address], [place] 12/26/2023 10:50:30 01/09/2024 text/html this patient has left Eustachian tube dysfunction. She was placed on antibiotics and steroids without improvement. She did have an audiogram and an examination at [facility] and Eustachian tube dysfunction was identified. Abel Greenwood MD [address], [address], [place], [address], [place] [place] 01/09/2024 13:01:11 04/15/2024 text/html This patient presents to the office for a postoperative visit from a left etd with myringotomy tube placement That was completed on 04/07/2024. She does report that her tinnitus in the affected ear has become more pronounced since surgery. MARÍA ELENA Nails [address], [place], [address], [place] [place] 04/15/2024 12:25:53 OBGyn Episode No OBEpisode recorded.
--- OUTSIDE RECORDS SUMMARY | 2024-06-19 00:38 | XMS_ITS | Clinical Summary ---
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
--- OUTSIDE RECORDS SUMMARY | 2024-06-19 00:38 | XMS_ITS | Referral Summary ---
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
--- NOTE | 2024-06-19 07:16 | WPDHPUPDATE1 ---
History and Physical Update Update Date/Time: 06/19/24 07:16 History and Physical has been reviewed, including an updated exam of the patient. There are NO changes in the patient's condition. Risks, benefits, and alternatives have been discussed and questions answered. Patient agrees to proceed with procedure.
[2024-06-19] MEDS: TRANEXAMIC ACID 1,000 MG/10 ML AMPUL 1000 MG IV PUSH ×2 (08:41→12:05)
[2024-06-19] MEDS: LACTATED RINGERS 1,000 ML 30 ML IV CONT ×2 (09:25→12:34)
[2024-06-19] MEDS: TRANEXAMIC ACID 1,000MG/ISO100 1,000 MG/100 ML BAG 200 MG IVPB (09:25)
[2024-06-19] MEDS: ACETAMINOPHEN 500 MG TABLET 1000 MG PO (09:25)
--- NOTE | 2024-06-19 10:28 | P.PNAN_ITS ---
Anes - Initial Pre Proc Eval Procedure: Operation Date: 06/19/24 10:30 Proposed Procedures p Right Custom Total Knee Arthroplasty - Dayne Blancas MD Date/Time: 06/19/24 10:28 Surgeon: Dayne Blancas MD Pre Op Diagnosis: primary OA right knee Patient Data Age: 58 Gender: F Height: 1.75 m Weight: 107.8 kg Last Vital Signs Temp 98.2 F 06/19/24 09:25 Pulse 87 06/19/24 09:25 Resp 14 06/19/24 09:25 BP 154/91 H 06/19/24 09:25 Pulse Ox 99 06/19/24 09:25 O2 Del Method Room Air 06/19/24 09:25 Allergies Allergy/AdvReac Type Severity Reaction Status Date / Time No Known Allergies Allergy Verified 06/19/24 09:40 Home Medications ?Medication ?Instructions ?Recorded ?Confirmed ?Type ascorbic acid (vitamin C) 250 mg 250 mg PO DAILY 05/08/19 06/19/24 History tablet aspirin 81 mg tablet,delayed 81 mg PO DAILY 05/15/19 06/19/24 History release (Adult Low Dose Aspirin) cholecalciferol (vitamin D3) 125 5,000 unit PO DAILY 05/15/19 06/19/24 History mcg (5,000 unit) capsule lisinopril 20 mg tablet 20 mg PO DAILY #90 tabs 01/08/24 06/19/24 Rx cyanocobalamin (vitamin B-12) 100 500 mcg PO DAILY 03/19/24 06/19/24 History mcg tablet (Vitamin B-12) diclofenac sodium 50 mg 50 mg PO DAILY #60 tabs 04/28/24 06/19/24 Rx tablet,delayed release ascorbic acid (vitamin C) 1,000 mg 1 g PO DAILY 06/02/24 06/19/24 History tablet (C-1000) calcium 185 mg-magnesium 50 mg-vit 2 cap PO DAILY 06/02/24 06/19/24 History D3 2.5 mcg (100 unit) capsule lactobacillus combination no.4 3 3,000 mmu cells PO DAILY 06/02/24 06/02/24 History billion cell capsule (Probiotic) aspirin 81 mg tablet,delayed 81 mg PO BID 14 days #28 tabs 06/19/24 Rx release ondansetron 4 mg disintegrating 4 mg PO Q8H #20 tabs 06/19/24 Rx tablet oxycodone-acetaminophen 5 mg-325 1 - 2 tablet PO Q4-6H PRN pain #30 06/19/24 Rx mg tablet tabs prednisone 5 mg tablet 5 mg PO DAILY 3 weeks #21 tabs 06/19/24 Rx Laboratory Tests 06/19/24 09:05 Blood Type Pending Antibody Screen Pending Patient hx anesthesia problems: post op nausea/vomiting (Significant in the past but has done well when antiemetics are given. ) Family hx anesthesia problems: none Results Review: All pre-operative results and documents have been reviewed as part of the pre- operative evaluation. [facility] Past Medical History Medical History Vertigo Rash Palpitations Pain, joint, multiple sites Other seasonal allergic rhinitis Hip pain, right Hand pain, right Dorsalgia Dietary counseling and surveillance (01/05/16) Pure hypercholesterolemia Hypertension Surgical History Surgical History History of ear surgery History of repair of left rotator cuff History of arthroscopic surgery of elbow Bilateral. History of arthroscopic knee surgery History of sinus surgery Family History Family History Mother No problems noted. Sibling Patient's brother is brain cancer Patient's sister is in good health Patient's brother is in good health Father Social History Social History Social History: The patient resides in [place]. She has 2 grown children. Lifelong nonsmoker. Occasional alcohol consumption in moderation. No illicit substance use. She designates her Wilfredo as her surrogate decision maker and wishes to be a full code. Smoking status: Never smoker Second hand tobacco smoke exposure: No Additional smoking assessment comments: DENIES ANY FORM OF TOBACCO USE Alcohol intake: current Drinks per week: 1 Alcohol use details: 3 DRINKS PER MONTH Substance use: current Substance use type: does not use Do You Feel Safe in your Home?: Yes Lack of Transportation: No Lack of Food: Never True Current Housing: I Have Housing Concerned About Future Housing: No Difficulty Paying Gas/Electric Bills: No Difficulty Paying for Meds: No Currently Unemployed: No Education: Master's Degree or Higher Difficulty w/ Childcare or Family Care: No Living arrangements: with family Occupation/Education: retired 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 HTN, borderline hyperlipidemia, EKG reviewed. 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 Informed Consent: The patient's anesthetic plan and its attendant risks and benefits were discussed with the patient/family/POA. Questions were solicited and answers provided to the satisfaction of the patient/family/POA.
[2024-06-19] MEDS: SCOPOLAMINE 1 MG PATCH 1 PATCH TRANSDERM (10:32)
[2024-06-19] MEDS: SODIUM CHLORIDE 0.9% IV 37.7 ML, MORPHINE SULFATE INJ (*CRX) 2 MG, ROPivacaine HCL 1% 2... INFILTRATE (10:46)
[2024-06-19] MEDS: ceFAZolin 2 GM/D5W 50 ML 2 GM/50 ML BAG IVPB (10:46)
--- NOTE | 2024-06-19 12:18 | P.OP_ITS ---
Procedure Note - Detailed Date of Procedure 06/19/24 Pre-op Diagnosis Right knee degenerative arthritis. Post-op Diagnosis Same Procedure Performed Custom total knee arthroplasty, right Surgeon Dayne Blancas MD [employer]ades [employer] Megan Pichardo PA-C Anesthesia General Findings Excellent bone quality. No releases were required. PCL intact. Description of Procedure Preoperative antibiotics were given. The limb was prepped and draped in the usual sterile fashion with a well-padded tourniquet high on the thigh. The limb was exsanguinated and the tourniquet inflated to 300 mmHg. A longitudinal incision was created just medial to the patella. A trivector approach to the knee was performed. Arthrotomy was taken down through the joint capsule. No significant releases were initially taken. The femur was exposed and the F1 jig was applied. The coring tool was used to remove the cartilage for the F2 jig to sit flush with the bone. The jig was pinned and the distal cut carefully taken. Caliper measurements confirmed appropriate bony resections according to the preoperative templated plan. The F4 cutting jig for the femur was applied, at the standard rotation. The AP and anterior chamfer cuts were taken. The F5 jig was applied and the posterior chamfer cuts were taken. The tibia was prepared using the T1 jig, after removing cartilage for the jig contact points. Proper alignment was checked with the alignment molly. The tibia was cut using the T1u guide. Gap balancing was performed. Gap measurements were taken and the knee was trialed. Excellent alignment and soft tissue balancing was confirmed. The posterior cruciate ligament was recessed along the proximal tibia. The patella was cut for resurfacing. Three lug holes were drilled. Meniscal remnants were removed. The trial components were assembled. Excellent range of motion and proper soft tissue balancing were confirmed throughout the full range of motion. Patellar tracking was excellent. The knee was copiously irrigated periodically throughout the procedure. The real implants were cemented into position. Excess cement was carefully removed. The wound was closed in layers with interrupted #1 Vicryl suture, 2-0 strata fix suture, 0 strata fix suture, 2-0 strata fix suture. Steri-Strips placed on the skin with the knee flexed. Sterile bulky dressing applied. The patient was brought to the recovery room in stable condition. There were no complications. Physician dietary assistant, Megan Pichardo PA-C, required for surgery; including patient positioning, draping, tissue retraction, maintaining instrument po sition, wound closure, and dressing placement. Implants Conformis Custom total knee arthroplasty. Cemented. Cruciate retaining. 7C insert. 38 mm oval patella. Estimated Blood Loss 150 Tourniquet Time Total Tourniquet Time: 57 Drains No Complications No immediate complications Condition Stable Disposition PACU [facility] Billing Surgery - Charge Forward: Surgery Billing
[2024-06-19] MEDS: fentaNYL CITRATE INJ (*CRX) 100 MCG/2 ML VIAL 25 MCG IV PUSH ×7 (12:45→13:17)
[2024-06-19] MEDS: ONDANSETRON INJ 4 MG/2 ML VIAL IV PUSH (13:30)
[2024-06-19] MEDS: oxyCODONE HCL (*CRX) 5 MG TAB IR PO (15:03)
== END 2024-06-19 16:35 | disposition home or self-care (01) ==
PROVIDERS: PCP Internal Medicine; Visit Provider Orthopaedic Surgery
PROC: (CPT 27447; principal; 2024-06-19 10:30)
DX: M17.11 Unilateral primary osteoarthritis, right knee (principal); E66.9 Obesity, unspecified; Z68.35 Body mass index [BMI] 35.0-35.9, adult
CPT/HCPCS: 27447; 36415; 73560; 86850; 86900; 86901; 97110; 97161; 97165; A9270; C1713; C1776; J0171; J0690; J1100; J1200; J1885; J2003; J2250; J2270; J2405; J2704; J2795; J3010; J7120

== ENCOUNTER 2024-07-31 11:00 | Outpatient (RCR) | payer BC, SELFPAY ==
--- NOTE | 2024-07-03 12:58 | OPREHPOC ---
Outpatient Therapy Plan of Care This is a Multidisciplinary Plan of Care that may contain components documented by all disciplines (PT, OT, and ST.) PT Problem 1 PT Problem #1 Knowledge Deficit PT Goal 1 Goal / Goal Update [place] with HEP Target Visit 4 PT Goal 2 Goal / Goal Update Report no pain greater than 2/10 for 2 consecutive weeks Target Visit 10 PT Problem 2 PT Problem #2 Impaired Gait PT Goal 1 Goal / Goal Update 1. Ambulate independent of AD 2. Ambulate with even stride length bilaterally Target Visit 10 PT Problem 3 PT Problem #3 Impaired Range of Motion PT Goal 1 Goal / Goal Update 1. Achieve terminal knee extension of R LE 2. Improve R knee flexion ROM to 125 degrees to improve functional bend Target Visit 10
--- NOTE | 2024-07-03 12:58 | PTOPEVAL1 ---
Assessment and note entered by Roderick Saez, PT Evaluation Information Assessment Status Evaluation Onset 06/19/24 Subjective Information Reports that she has pain for about a year. She went through a series of injections which no longer helped. Reports that she has been sleeping better the past couple of days. She has had a little bit of a sciatica flare up. Reports some pain in the ankle with dependence. She reports that her biggest problem right now is the sciatica . Reported Pain Level Pain Score 0: Self Report Assessment PT Clinical Summary Patient presents with weakness, swelling, and ROM loss typical of post operative total knee arthroplasty. Patient appears motivated and appropriate for progression as tolerated to improve knee ROM, strength, and functional mobility. No concerns noted or expressed at this time. Plan of Care Interventions Gait Training,Manual Therapy,Neuro Re-education, Therapeutic Activities,Therapeutic Exercise PT Services Indicated Yes Treatment Frequency and 2x/week for 10 visits Duration These treatments will address the objective and functional deficits as defined above. The patient will be advanced safely and appropriately in order for the patient to progress towards his/her prior level of function. Additional exercises will be introduced and as well as a comprehensive home exercise program upon discharge, if needed, ?to ensure carryover of functional gains achieved in the clinic. This treatment plan has been reviewed and agreement upon by the patient.
--- NOTE | 2024-07-31 11:52 | OPREHPOC ---
Outpatient Therapy Plan of Care This is a Multidisciplinary Plan of Care that may contain components documented by all disciplines (PT, OT, and ST.) PT Problem 1 PT Problem #1 Knowledge Deficit PT Goal 1 Goal / Goal Update [place] with HEP Target Visit 4 Progress Met PT Goal 2 Goal / Goal Update Report no pain greater than 2/10 for 2 consecutive weeks Target Visit 10 Progress Met PT Problem 2 PT Problem #2 Impaired Gait PT Goal 1 Goal / Goal Update 1. Ambulate independent of AD 2. Ambulate with even stride length bilaterally Target Visit 10 Progress Met PT Problem 3 PT Problem #3 Impaired Range of Motion PT Goal 1 Goal / Goal Update 1. Achieve terminal knee extension of R LE 2. Improve R knee flexion ROM to 125 degrees to improve functional bend Target Visit 10 Progress Met
--- NOTE | 2024-07-31 11:52 | PTOPDC ---
Assessment and note entered by Roderick Saez, PT Evaluation Information Assessment Status Discharge Onset 06/19/24 Subjective Information Reports that she has pain for about a year. She went through a series of injections which no longer helped. Reports that she has been sleeping better the past couple of days. She has had a little bit of a sciatica flare up. Reports some pain in the ankle with dependence. She reports that her biggest problem right now is the sciatica . Reported Pain Level Pain Score 0: Self Report Assessment PT Clinical Summary Patient met all goals for therapy and is suitable for discharge to [facility] at this time. Patient has been compliant and has done exceptionally well. She is independent with HEP and understands meterman expectation for continued recovery. No concerns with discharge at this time. Plan of Care PT Services Indicated Yes
== END 2024-08-01 13:36 | disposition home or self-care (01) ==
LOC: ANHPT 11:00
PROVIDERS: PCP Internal Medicine; Visit Provider Orthopaedic Surgery
DX: Z47.1 Aftercare following joint replacement surgery (principal); Z96.651 Presence of right artificial knee joint
CPT/HCPCS: 97110; 97116; 97140; 97161

== ENCOUNTER 2024-10-19 09:21 | Emergency (ER) | payer BC, SELFPAY ==
[2024-10-19 09:27] VITALS: BP 153/93; PULSE 78; RESP 18; TEMP 36.5; O2SAT 97
--- NOTE | 2024-10-19 09:28 | ED.GENADULT ---
HPI - General Adult General Chief complaint: Wound/Laceration Stated complaint: Insect Bite Time Seen by Provider: 10/19/24 09:28 Source: patient Mode of arrival: ambulatory Limitations: no limitations History of Present Illness HPI narrative: 59-year-old female patient presents to the [facility] with complaints of a wasps sting to the right upper extremity x2 days. Patient states that after she got stung she did go inside the house and wash it with soap water and applied antibiotic ointment to it. Patient states she woke up this morning and the redness and swelling had spread and she wanted to come and get it checked out. Patient states she had a knee replacement a few months ago wanted make sure that the infection did not go to her knee. Denies any fevers body aches or chills. Denies any fatigue or muscle joint pain. Denies any nausea vomiting or diarrhea. Denies any trouble breathing or chest pain. Patient states she did take his Zyrtec today after calling the nurse hotline to her insurance. Related Data Home Medications ?Medication ?Instructions ?Recorded ?Confirmed ?Last Taken ?Type aspirin 81 mg tablet,delayed 81 mg PO DAILY 05/15/19 10/03/24 06/12/24 History release (Adult Low Dose Aspirin) cholecalciferol (vitamin D3) 125 5,000 unit PO DAILY 05/15/19 10/03/24 06/12/24 History mcg (5,000 unit) capsule cyanocobalamin (vitamin B-12) 100 500 mcg PO DAILY 03/19/24 10/03/24 06/12/24 History mcg tablet (Vitamin B-12) ascorbic acid (vitamin C) 1,000 mg 1 g PO DAILY 06/02/24 10/03/24 06/12/24 History tablet (C-1000) lactobacillus combination no.4 3 3,000 mmu cells PO DAILY 06/02/24 10/03/24 Unknown History billion cell capsule (Probiotic) calcium 250 mg (as tablet PO 07/11/24 10/03/24 Unknown History carbonate)-vitamin D3 3 mcg (120 unit) tablet Allergies Allergy/AdvReac Type Severity Reaction Status Date / Time No Known Allergies Allergy Verified 10/03/24 08:11 Review of Systems Review of Systems: CONSTITUTIONAL: Denies fever, chills, or sweats. EYES: Denies visual changes, redness, or discharge. ENT: Denies rhinorrhea, congestion, sore throat, or otalgia. CARDIOVASCULAR: Denies chest pain, palpitations, or edema. RESPIRATORY: Denies cough or dyspnea. GASTROINTESTINAL: Denies abdominal pain, nausea, vomiting, or diarrhea. GENITOURINARY: Denies dysuria or hematuria. SKIN: Denies rash or itching. Positive redness and swelling to right upper extremity x2 days MUSCULOSKELETAL: Denies back pain, joint pain, or myalgia. NEUROLOGIC: Denies headache, numbness, or weakness. PSYCHIATRIC: Denies anxiety or depression. [facility] Past Medical History Medical History Vertigo Rash Palpitations Pain, joint, multiple sites Other seasonal allergic rhinitis Hip pain, right Hand pain, right Dorsalgia Dietary counseling and surveillance (01/05/16) Pure hypercholesterolemia Hypertension Surgical History Surgical History History of ear surgery History of repair of left rotator cuff History of arthroscopic surgery of elbow Bilateral. History of arthroscopic knee surgery History of sinus surgery Family History Family History Mother No problems noted. Sibling Patient's brother is brain cancer Patient's sister is in good health Patient's brother is in good health Father Social History Social History Social History: The patient resides in [place]. She has 2 grown children. Lifelong nonsmoker. Occasional alcohol consumption in moderation. No illicit substance use. She designates her Wilfredo as her surrogate decision maker and wishes to be a full code. Smoking status: Never smoker Second hand tobacco smoke exposure: No Additional smoking assessment comments: DENIES ANY FORM OF TOBACCO USE Alcohol intake: current Drinks per week: 1 Alcohol use details: 3 DRINKS PER MONTH Substance use: current Substance use type: does not use Do You Feel Safe in your Home?: Yes Lack of Transportation: No Lack of Food: Never True Current Housing: I Have Housing Concerned About Future Housing: No Difficulty Paying Gas/Electric Bills: No Difficulty Paying for Meds: No Currently Unemployed: No Education: Master's Degree or Higher Difficulty w/ Childcare or Family Care: No Living arrangements: with family Occupation/Education: retired 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 There is no relevant family history pertinent to the presenting complaint. Exam Narrative: GENERAL: Well-appearing, well-nourished, and in no acute distress. HEAD: Normocephalic, atraumatic. EYES: PERRLA and EOMI. ENT: Nares clear, no rhinorrhea or epistaxis. Mucous membranes moist. NECK: Supple. No lymphadenopathy CHEST: Clear to auscultation. No respiratory distress. HEART: Regular rate and rhythm. No murmur heard. Normal peripheral pulses. ABDOMEN: Soft, nontender, nondistended, normal active bowel sounds. EXTREMITIES: Normal range of motion. No edema. SKIN: Warm, dry, no rash. Patient has approximately 12.5 x 8 cm erythemic area to the right upper extremity that does feel hot on the touch. No open wounds or drainage noted at this time. NEURO: No focal deficits. Alert and oriented x3. Course Course Level of Care: Express Care Visit Vital Signs Vital signs: Vital Signs Temperature 36.5 C 10/19/24 09:27 Pulse Rate 78 10/19/24 09:27 Respiratory Rate 18 10/19/24 09:27 Blood Pressure 153/93 H 10/19/24 09:27 Pulse Oximetry 97 10/19/24 09:27 Oxygen Delivery Room Air 10/19/24 09:27 Temperature 36.5 C 10/19/24 09:27 Pulse Rate 78 10/19/24 09:27 Respiratory Rate 18 10/19/24 09:27 Blood Pressure 153/93 H 10/19/24 09:27 Pulse Oximetry 97 10/19/24 09:27 Oxygen Delivery Room Air 10/19/24 09:27 Vital signs reviewed. The patient has been informed that they may have pre-hypertension or Hypertension based on a BP reading in the department. I recommend that the patient call the primary care provider listed on their discharge instructions or a physician of their choice this week to arrange follow up for further evaluation of possible pre-hypertension or Hypertension Medical Decision Making MDM Narrative Medical decision making narrative: Plan of care for patient is to treat for cellulitis infection with oral antibiotics. Encouraged patient to continue taking the Zyrtec to help with the itching and swelling and continue to keep the area clean with soap water and apply antibiotic ointment. Discussed with patient she can use heat and ice to help with swelling and pain. Patient verbalized understanding denies any other questions or concerns at this time. Differential Diagnosis Differential Diagnosis: Differential diagnosis: Abscess, cellulitis, hidradenitis, laceration, puncture wound. Vital Signs Vital Signs: Vital Signs Temperature 36.5 C 10/19/24 09:27 Pulse Rate 78 10/19/24 09:27 Respiratory Rate 18 10/19/24 09:27 Blood Pressure 153/93 H 10/19/24 09:27 Pulse Oximetry 97 10/19/24 09:27 Oxygen Delivery Room Air 10/19/24 09:27 Temperature 36.5 C 10/19/24 09:27 Pulse Rate 78 10/19/24 09:27 Respiratory Rate 18 10/19/24 09:27 Blood Pressure 153/93 H 10/19/24 09:27 Pulse Oximetry 97 10/19/24 09:27 Oxygen Delivery Room Air 10/19/24 09:27 Critical Care Time Critical Care Time Critical Care Time: No Discharge Plan Discharge Clinical Impression: Cellulitis of arm, right, Insect bite or sting Patient Disposition: Home Condition: Stable Instructions: Antibiotic Form, Cellulitis (ED) Additional Instructions: Take the prescribed antibiotic medicine you are given as directed until it is gone. Take it even if you feel better. It treats the infection and stops it from returning. Not taking all the medicine can make future infections hard to treat. Keep the infected area clean. When possible, raise the infected area above the level of your heart. This helps keep swelling down. May take Tylenol ibuprofen as needed for pain Take your temperature once a day for a week to monitor for fevers. If you do spike a fever please call your doctor right away. Wash your hands often to prevent spreading the infection. In the future, wash your hands before and after you touch cuts, scratches, or bandages. This will help prevent infection. Please call your doctor today and be scheduled for follow-up appointments in regards to being evaluated for vascular disease. When to call your healthcare provider Call your healthcare provider immediately if you have any of the following: Difficulty or pain when moving the joints above or below the infected area Discharge or pus draining from the area Fever of 100.4?F (38?C) or higher, or as directed by your healthcare provider Pain that gets worse in or around the infected Redness that gets worse in or around the infected area, particularly if the area of redness expands to a wider area Shaking chills Swelling of the infected area Vomiting Patient Language: [place] Citizen Prescriptions: New cephalexin 500 mg capsule 500 mg PO Q12H 7 Days Qty: 14 0RF No Action cyanocobalamin (vitamin B-12) [Vitamin B-12] 100 mcg tablet 500 mcg PO DAILY calcium carbonate-vitamin D3 250 mg-3 mcg (120 unit) tablet PO diclofenac sodium 50 mg tablet,delayed release (DR/EC) 50 mg PO DAILY Qty: 60 0RF aspirin [Adult Low Dose Aspirin] 81 mg tablet,delayed release (DR/EC) 81 mg PO DAILY cholecalciferol (vitamin D3) 125 mcg (5,000 unit) capsule 5,000 unit PO DAILY Probiotic 3 billion cell capsule 3,000 mmu cells PO DAILY Rx Instructions: administer with a meal ascorbic acid (vitamin C) [C-1000] 1,000 mg tablet 1 g PO DAILY aspirin 81 mg tablet,delayed release (DR/EC) 81 mg PO BID 14 Days Qty: 28 0RF lisinopril 20 mg tablet 20 mg PO DAILY Qty: 90 2RF Follow-up/Referrals: Juan Miguel Villeda DO [Primary Care Provider] - Time of Disposition: 09:37
== END 2024-10-19 09:45 | disposition home or self-care (01) ==
PROVIDERS: Emergency Provider Nurse Practitioner Family; PCP Internal Medicine
DX: L03.113 Cellulitis of right upper limb (principal); T63.461A Toxic effect of venom of wasps, accidental (unintentional), initial encounter; I10 Essential (primary) hypertension; E78.00 Pure hypercholesterolemia, unspecified; Z79.82 Long term (current) use of aspirin
CPT/HCPCS: 99213; G0463

== ENCOUNTER 2024-10-28 16:32 | Emergency (ER) | payer BC, SELFPAY ==
--- NOTE | 2024-10-28 16:36 | ED.SKABFB ---
HPI - Skin/Abscess/Foreign Bdy General Chief complaint: Skin/Abscess/Foreign Body Stated complaint: Insect Bite Time Seen by Provider: 10/28/24 16:38 Source: patient, RN notes reviewed and old records reviewed Mode of arrival: ambulatory Limitations: no limitations History of Present Illness HPI narrative: 59-year-old female presents to the [facility] with concerns for an insect bite. Patient reports that she was stung with walks just prior to arrival. Clean the area. Redness noted to the posterior left upper arm. Area is warm, blanchable. Patient was seen on October 19, 9 days ago, treated with antibiotics for a wasps sting, redness and swelling to the right upper extremity. Related Data Home Medications ?Medication ?Instructions ?Recorded ?Confirmed ?Last Taken ?Type aspirin 81 mg tablet,delayed 81 mg PO DAILY 05/15/19 10/03/24 06/12/24 History release (Adult Low Dose Aspirin) cholecalciferol (vitamin D3) 125 5,000 unit PO DAILY 05/15/19 10/03/24 06/12/24 History mcg (5,000 unit) capsule cyanocobalamin (vitamin B-12) 100 500 mcg PO DAILY 03/19/24 10/03/24 06/12/24 History mcg tablet (Vitamin B-12) ascorbic acid (vitamin C) 1,000 mg 1 g PO DAILY 06/02/24 10/03/24 06/12/24 History tablet (C-1000) lactobacillus combination no.4 3 3,000 mmu cells PO DAILY 06/02/24 10/03/24 Unknown History billion cell capsule (Probiotic) calcium 250 mg (as tablet PO 07/11/24 10/03/24 Unknown History carbonate)-vitamin D3 3 mcg (120 unit) tablet Allergies Allergy/AdvReac Type Severity Reaction Status Date / Time No Known Allergies Allergy Verified 10/28/24 16:45 Review of Systems Review of Systems: All systems reviewed & are unremarkable except as noted in HPI and below Constitutional: Constitutional: Reports no additional constitutional complaints ENT: Reports system reviewed and no additional complaints, except as documented Cardiovascular: Cardiovascular: Reports no additional cardiovascular complaints, Denies chest pain and Denies dyspnea Respiratory: Respiratory: Reports no additional respiratory complaints, Denies chest congestion, Denies cough and Denies dyspnea Musculoskeletal: Musculoskeletal: Reports no additional musculoskeletal complaints Integumentary/Breasts: Skin/Breast: Reports as per [facility] Past Medical History Medical History Vertigo Rash Palpitations Pain, joint, multiple sites Other seasonal allergic rhinitis Hip pain, right Hand pain, right Dorsalgia Dietary counseling and surveillance (01/05/16) Pure hypercholesterolemia Hypertension Surgical History Surgical History History of ear surgery History of repair of left rotator cuff History of arthroscopic surgery of elbow Bilateral. History of arthroscopic knee surgery History of sinus surgery Family History Family History Mother No problems noted. Sibling Patient's brother is brain cancer Patient's sister is in good health Patient's brother is in good health Father Social History Social History Social History: The patient resides in [place]. She has 2 grown children. Lifelong nonsmoker. Occasional alcohol consumption in moderation. No illicit substance use. She designates her Wilfredo as her surrogate decision maker and wishes to be a full code. Smoking status: Never smoker Second hand tobacco smoke exposure: No Additional smoking assessment comments: DENIES ANY FORM OF TOBACCO USE Alcohol intake: current Drinks per week: 1 Alcohol use details: 3 DRINKS PER MONTH Substance use: current Substance use type: does not use Do You Feel Safe in your Home?: Yes Lack of Transportation: No Lack of Food: Never True Current Housing: I Have Housing Concerned About Future Housing: No Difficulty Paying Gas/Electric Bills: No Difficulty Paying for Meds: No Currently Unemployed: No Education: Master's Degree or Higher Difficulty w/ Childcare or Family Care: No Living arrangements: with family Occupation/Education: retired 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 There is no relevant family history pertinent to the patient complaint. Exam Const: General: cooperative, healthy appearing, comfortable, no acute distress, well developed, alert and well nourished Nutritional Appearance: well nourished Orientation/consciousness: patient oriented x3 Limitations: no limitations HENMT: Head: normal to inspection Eyes: General: appearance normal, both eyes and all related structures Alignment and Position: alignment normal Neck: Neck: normal visual inspection, full ROM, no lymphadenopathy and no meningeal signs Chest: Chest palpation & inspection: normal inspection of the chest Resp: Effort & Inspection: normal respiratory effort and able to speak in complete sentences Auscultation: clear to auscultation bilaterally, no crackles, no rales, no rhonchi and no wheezes Cardio: Rate: regular rate Skin: General skin exam: normal color and no rashes or lesions noted Other: Redness to the left posterior upper arm, blanchable, warm to touch, center has a puncture wound, where stinger was. Neuro: General: patient oriented x3, gait normal, moves all extremities and no meningeal signs Cognition (Neuro): normal cognition Speech: normal speech Gait exam (Neuro): Normal gait present Extrem: General: normal to inspection, full ROM, capillary refill normal and normal gait Psych: Appearance: grossly normal and well kempt Mental Status: mental status grossly normal Speech and movement: Normal speech and movement present and Clear speech present Affect: normal affect Attitude: cooperative Course Course Level of Care: Express Care Visit Vital Signs Vital signs: Vital Signs Temperature 98.2 F 10/28/24 16:37 Pulse Rate 78 10/28/24 16:37 Respiratory Rate 16 10/28/24 16:37 Blood Pressure 164/85 H 10/28/24 16:37 Pulse Oximetry 99 10/28/24 16:37 Oxygen Delivery Room Air 10/28/24 16:37 Temperature 98.2 F 10/28/24 16:37 Pulse Rate 78 10/28/24 16:37 Respiratory Rate 16 10/28/24 16:37 Blood Pressure 164/85 H 10/28/24 16:37 Pulse Oximetry 99 10/28/24 16:37 Oxygen Delivery Room Air 10/28/24 16:37 Reviewed MDM - Skin/Abscess/Foreign Bdy MDM Narrative Medical decision making narrative: Patient sitting in exam room. Patient is nontoxic, vitals stable. Patient presents with post wasp sting. Most likely having a localized reaction. Patient appropriate for outpatient treatment with [id number] products and prednisone. Discharge instructions reviewed with patient, as well as provided in writing per nursing staff. The instructions also include specific and strict return/GO TO THE ER as well as f/u information. All questions have been answered, and the patient deny any further questions with discharge and discharge plan. Some parts of this dictation were generated by voice recognition software and may contain typographical and/or grammatical inaccuracies. Differential Diagnosis Differential diagnosis: Likely abscess of skin or subcutaneous tissue, urticaria, cellulitis and insect bites Critical Care Time Critical Care Time Critical Care Time: No Discharge Plan Discharge Clinical Impression: Accidental insect sting Patient Disposition: Home Condition: Stable Instructions: Insect Bite or Sting (ED), General Allergic Reaction (ED) Additional Instructions: Today your blood pressure was 164/85. It is recommended you follow-up with primary care provider for recheck. The most important part of your care is follow up with Primary care provider. Take Benadryl 25 mg every 8 hours for itching Take Zyrtec 10mg every day x 14 days Take Pepcid 20mg daily for 14 days Take steroids as prescribed Avoid hot showers, Take cool showers. Hot showers will make rashes worse Apply cool compresses every 2-3 hours for 15 minutes Go to the ER for new or worsening symptoms such as shortness of breath. Patient Language: Swedish Prescriptions: New prednisone 20 mg tablet See Rx Instructions .Route .COMPLEX Qty: 9 0RF Rx Instructions: Take 40 mg daily for 3 days, 20 mg daily for 3 days No Action cephalexin 500 mg capsule 500 mg PO Q12H 7 Days Qty: 14 0RF cyanocobalamin (vitamin B-12) [Vitamin B-12] 100 mcg tablet 500 mcg PO DAILY calcium carbonate-vitamin D3 250 mg-3 mcg (120 unit) tablet PO diclofenac sodium 50 mg tablet,delayed release (DR/EC) 50 mg PO DAILY Qty: 60 0RF aspirin [Adult Low Dose Aspirin] 81 mg tablet,delayed release (DR/EC) 81 mg PO DAILY cholecalciferol (vitamin D3) 125 mcg (5,000 unit) capsule 5,000 unit PO DAILY Probiotic 3 billion cell capsule 3,000 mmu cells PO DAILY Rx Instructions: administer with a meal ascorbic acid (vitamin C) [C-1000] 1,000 mg tablet 1 g PO DAILY aspirin 81 mg tablet,delayed release (DR/EC) 81 mg PO BID 14 Days Qty: 28 0RF lisinopril 20 mg tablet 20 mg PO DAILY Qty: 90 2RF Follow-up/Referrals: Juan Miguel Villeda DO [Primary Care Provider, Internal Medicine] - 1 Week Referral Note: Blood pressure check, 164/85 Clinical Impression: Accidental insect sting
[2024-10-28 16:37] VITALS: BP 164/85; PULSE 78; RESP 16; TEMP 36.8; O2SAT 99
== END 2024-10-28 16:59 | disposition home or self-care (01) ==
PROVIDERS: Emergency Provider Nurse Practitioner; PCP Internal Medicine
DX: T65.91XA Toxic effect of unspecified substance, accidental (unintentional), initial encounter (principal); W57.XXXA Bitten or stung by nonvenomous insect and other nonvenomous arthropods, initial encounter
CPT/HCPCS: 99213; G0463

== ENCOUNTER 2025-01-06 10:59 | Outpatient (CLI) | payer BC, SELFPAY ==
--- NOTE | ~2025-01-06 | XR_ITS ---
Examination: XR knee RT 3V Clinical History: M25.561 - Pain in right knee Comparison: 06/19/2024 Technique: 3 views right knee Findings/impression: 1. Small joint effusion. 2. Arthroplasty intact without associated fracture or complication. 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
--- NOTE | ~2025-01-06 | XR_ITS ---
Examination: XR hip RT 2V w AP pelvis Clinical History: M25.551 - Pain in right hip Comparison: None Technique: 2 views right hip with AP pelvis Findings/impression: No acute findings- 1. No fracture or dislocation right hip. 2. Mild degenerative changes right hip with joint space narrowing. 3. No pelvic fracture identified. 4. Single view left hip unremarkable. 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
--- OUTSIDE RECORDS SUMMARY | 2025-01-06 13:12 | XMS_ITS | Clinical Summary ---
Author Organization [facility] [id number] [employer] Address [address] [place] [address] Care Team Providers Care Payroll Benefits Administrator Name Role Phone Stefano Kelly MD Primary Care Provider [phone] Allergies No known active allergies Medications aspirin [...] on file Legal Sex Female 4:17 AM [employer] Gender Identity Not on file Sexual Orientation Not on file Last Filed Vital Signs Vital Sign Reading Time Taken Comments Blood Pressure - - Pulse - - Temperature - - Respiratory Rate 18 09/26/2023 9:10 AM CDT Oxygen Saturation - - Inhaled Oxygen Concentration - - Weight 104.3 kg (230 lb) 09/26/2023 9:10 AM CDT Height 177.8 cm (5' 10) 09/26/2023 9:10 AM CDT Body Mass Index [...] 2) 12/20/2019 10/25/2019 Covid-19 Vaccine (4 - 2024- season) 2024 07/15/2021, 01/14/2021, 05/08/2020 Influenza Vaccine (#1) 2024 , 11/20/2019, 12/09/2018, Additional history exists Pneumococcal vaccine <65 Aged Out No longer eligible based on patient's age to complete this topic [place] Care Teams Payroll Benefits Administrator Relationship Specialty Start Date End Date Stefano Kelly MD [address] [facility] [address] [place], [place] [id number] PCP - General 01/25/16
== END 2025-01-06 11:00 | disposition home or self-care (01) ==
LOC: ANHIMG 11:01
PROVIDERS: PCP Internal Medicine; Visit Provider Orthopaedic Surgery
DX: M25.461 Effusion, right knee (principal); Z96.651 Presence of right artificial knee joint; M16.11 Unilateral primary osteoarthritis, right hip; M25.561 Pain in right knee; M25.551 Pain in right hip
CPT/HCPCS: 73502; 73562